=== PATIENT | male | born 1965 | race Caucasian/White ===

== ENCOUNTER 2020-01-31 21:39 | Emergency (ER) | payer BC ==
[2020-01-31 22:01] VITALS: BP 159/92; PULSE 119
[2020-02-01] MEDS ORDERED: Sulfamethoxazole/Trimethoprim 800-160 MG Tab PO STA (01:04)
--- NOTE | 2020-02-01 01:07 | EDM.PDOC ---
ED HPI GENERAL MEDICAL PROBLEM - General Chief Complaint: Genitourinary Problem Stated Complaint: FEVER CHILLD ABDOMINAL PAIN DIARRHEA Time Seen by Provider: 02/01/20 00:34 Source of Information: Reports: Patient, Significant Other (Girlfriend) History Limitations: Reports: No Limitations - History of Present Illness INITIAL COMMENTS - FREE TEXT/NARRATIVE: Mr. Mederos is a pleasant 54-year-old gentleman with a past medical history significant for rheumatoid arthritis, diabetes, morbid obesity, and diverticulitis, who now presents to the ED stating that he developed dysuria, u rinary urgency, and urinary frequency this morning. He states that he feels lower abdominal fullness and rectal urgency, as if constipated, however, he has not actually been constipated. He then developed a fever with a T-max of 101.6 degrees at 20:45. No prior similar symptoms. He did not take any etew-[id number] medications prior to coming to the ED. Here in the ED, the patient's initial BP is found to be elevated at 159/92, with a tachycardia of 119 bpm and slight tachypnea at 21 rpm. He is afebrile, saturating 91% on room air. The patient states that he had some malaise for 1 day about 2 ago, otherwise, the patient denies recent sore throat, ear pain, nasal or sinus congestion, cough, dyspnea, chest pain, palpitations, nausea, vomiting, constipation, diarrhea, abdominal pain, recent weight gain or weight loss, recent bloody bowel movements or black bowel movements, recent joint aches, headaches, or rashes. The patient states that he checks his blood sugar only about once a month, most recently about 2 weeks ago. The patient's PCP is Dr. Lisa Avina. His Management Expert is Dr. Baldomero Pichardo. His cardiology midlevel is [facility]. - Related Data Allergies Allergy/AdvReac Type Severity Reaction Status Date / Time amoxicillin [Amoxicillin] Allergy Mild Cannot Verified 02/03/20 10:03 Remember erythromycin base Allergy Mild Cannot Verified 02/03/20 10:03 [Erythromycin Base] Remember Home Meds: Home Meds Aspirin [Tim Chewable Aspirin] 81 mg PO DAILY 12/12/13 [History] Lisinopril 20 mg PO DAILY 12/12/13 [History] carvediloL [Coreg] 25 mg PO BID 12/12/13 [History] Allopurinol [Zyloprim] 300 mg PO BID 07/20/15 [History] metFORMIN [Glucophage XR] 500 mg PO BID 07/08/16 [History] Omeprazole 20 mg PO DAILY #30 cap.cr 07/26/16 [Rx] Fenofibrate 160 mg PO DAILY 06/21/19 [History] Furosemide [Lasix] 40 mg PO DAILY 06/21/19 [History] amLODIPine Besylate [Norvasc] 5 mg PO DAILY 06/21/19 [History] Past Medical History HEENT History: Reports: Impaired Vision (wears contacts) Cardiovascular History: Reports: Cardiomyopathy (viral, resolved), High Cholesterol, Hypertension Respiratory History: Reports: Sleep Apnea (nightly CPAP 13) Gastrointestinal History: Reports: Colon Polyp, Diverticulosis Musculoskeletal History: Reports: Fracture (left 2nd finger), Gout, RA, Other (See Below) (Unequel lower extremity length) Endocrine/Metabolic History: Reports: Diabetes, Type II, Obesity/BMI 30+ - Past Surgical History HEENT Surgical History: Reports: Myringotomy w Tube(s), Tonsillectomy Cardiovascular Surgical History: Reports: AICD GI Surgical History: Reports: Cholecystectomy (2017), Colonoscopy, Hernia, I nguinal (left) Musculoskeletal Surgical History: Reports: Knee Replacement (left), Shoulder Surgery (left), Other (See Below) (Left ankle fusion) Dermatological Surgical History: Reports: Other (See Below) (Lipoma excised off left shoulder) Social & Family History - Tobacco Use Smoking Status *Q: Current Every Day Smoker Years of Tobacco use: 46 Packs/Tins Daily: 0.8 Packs/Tins Daily Comment: Down from 2 ppd - Caffeine Use Caffeine Use: Reports: Coffee - Alcohol Use Alcohol Use History: Yes Days Per Week of Alcohol Use: 7 Number of Drinks Per Day: 2 Total Drinks Per Week: 14 Alcohol Use Frequency: Daily (occasionally to excess) - Recreational Drug Use Recreational Drug Use: Yes Drug Use in Last 12 Months: No Recreational Drug Type: Reports: Marijuana/Hashish (last smoked prior to 2009) - Living Situation & Occupation Living situation: Reports: , with Significant Other (Girlfriend) Occupation: Employed ([employer] shop) ED ROS GENERAL - Review of Systems Review Of Systems: Comprehensive ROS is negative, except as noted in HPI. ED EXAM, RENAL/ - Physical Exam Exam: See Below Exam Limited By: No Limitations General Appearance: Alert, WD/WN, No Apparent Distress (appears uncomfortable) Eye Exam: Bilateral Eye: EOMI, Normal Inspection Ears: Normal External Exam, Hearing Grossly Normal Nose: Normal Inspection Throat/Mouth: Normal Inspection, Normal Lips, Normal Voice, No Airway Compromise Head: Atraumatic, Normocephalic Neck: Normal Inspection, Full Range of Motion Respiratory/Chest: No Respiratory Distress, Lungs Clear, Normal Breath Sounds, No Accessory Muscle Use Cardiovascular: Normal Peripheral Pulses, No Gallop, No JVD, No Murmur, No Rub, Tachycardia (regular) GI/Abdominal: Normal Bowel Sounds, Soft, No Organomegaly, No Distention, No Abnormal Bruit, No Mass, Tender (Mild, suprapubic only. Essentially nontender elsewhere.) (Male) Exam: Other (The prostate is tender on rectal exam) Rectal (Males) Exam: Normal Rectal Tone Back Exam: Normal Inspection, Full Range of Motion. No: CVA Tenderness (L), CVA Tenderness (R) Extremities: Normal Inspection, Normal Range of Motion, Normal Capillary Refill Neurological: Alert, Oriented, Normal Cognition, No Motor/Sensory Deficits Psychiatric: Normal Affect Skin Exam: Warm, Dry, Intact, Normal Color, No Rash Course - Vital Signs Last Recorded V/S: Last Vital Signs Temp 37.8 C 01/31/20 21:55 Pulse 119 H 01/31/20 21:55 Resp 21 H 01/31/20 21:55 BP 159/92 H 01/31/20 21:55 Pulse Ox 91 L 01/31/20 21:55 - Orders/Labs/Meds Labs: Laboratory Tests 01/31/20 Range/Units 20:03 Urine Color Yellow (Yellow) Urine Appearance Clear (Clear) Urine pH 7.0 (5.0-8.0) Ur Specific Harrison 1.020 (1.005-1.030) Urine Protein 2+ H (Negative) Urine Glucose (UA) Negative (Negative) Urine Ketones Trace H (Negative) Urine Occult Blood Negative (Negative) Urine Nitrite Negative (Negative) Urine Bilirubin Negative (Negative) Urine Urobilinogen 1.0 (0.2-1.0) Ur Leukocyte Esterase Trace H (Negative) Urine RBC 0-5 (0-5) /hpf Urine WBC 0-5 (0-5) /hpf Ur Epithelial Cells 0-5 (0-5) /hpf Urine Bacteria Moderate H (FEW) /hpf Urine Mucus Not seen (FEW) /hpf Meds: Medications Discontinued Medications Generic Name Dose Route Start Last Admin Trade Name Gilberto PRN Reason Stop Dose Admin Tramadol HCl 100 mg 02/01/20 01:28 02/01/20 01:48 Ultram PO 02/01/20 01:29 100 mg ONETIME ONE Administration Trimethoprim/Sulfamethoxazole 1 tab 02/01/20 01:04 02/01/20 01:17 Septra Ds PO 02/01/20 01:05 1 tab ONETIME STA Administration - Re-Assessments/Exams Free Text/Narrative Re-Assessment/Exam: 02/01/20 01:02 As above, the patient has been experiencing dysuria, urinary urgency, and frequency since this morning, along with fever and chills this afternoon. On physical exam, he has mild suprapubic tenderness, and his prostate is tender. His urinalysis is grossly unremarkable. I suspect that he is suffering from acute bacterial prostatitis. I have ordered a bladder scan, and presuming he does not have a significant amount of urinary retention, I believe he can be discharged home with a course of oral antibiotics. I will start him on oral Bactrim DS. 02/01/20 01:23 Notified by Marilee TY that the patient's post-void bladder scan found only 4 mL of urine. 02/01/20 01:30 Test results discussed with the patient and his girlfriend. The patient will be given a 100 mg tablet of tramadol, after which I will discharge him home with a prescription for Bactrim DS sufficient to complete a 10-day course. I would like the patient to follow-up with his PCP on 02/04/2020, to check on his urine culture results. Departure - Departure Time of Disposition: 01:31 Disposition: Home, Self-Care 01 Condition: Good Clinical Impression: Acute bacterial prostatitis - Discharge Information *PRESCRIPTION DRUG MONITORING PROGRAM REVIEWED*: Not Applicable *COPY OF PRESCRIPTION DRUG MONITORING REPORT IN PATIENT ZUNILDA: Not Applicable Instructions: Prostatitis, [id number] Referrals: Lisa Avina MD [Primary Care Provider] - Mary Anne Pickard PA-C [Ordering Only Provider] - Baldomero Pichardo DO [Ordering Only Provider] - Forms: ED Department Discharge Additional Instructions: You were seen in the emergency room after developing painful urination with the need to urinate often, this morning, along with lower abdominal pressure and the sensation that you need to defecate, then developing a fever and chills this afternoon. Work-up in the ER included a urinalysis and a bladder scan. Based on your history, physical exam, and ER tests, you are suffering from acute bacterial prostatitis = an infection of your prostate gland. You have been started on the antibiotic Bactrim, and a prescription for Bactrim has been sent to the [facility], located just south and [place] [address] from [facility]. Take 1 tablet of Bactrim every 12 hours, starting this morning, 02/01/2020. Finish the entire prescription unless told otherwise by your doctor. We recommend that you follow-up with your PCP, Dr. Lisa Avina, this coming 02/04/2020, to have her check on your urine culture results and to see how you are doing. If any other problems, please do not hesitate to return to the ER. Sepsis Event Note (ED) - Evaluation Sepsis Screening Result: Possible Sepsis Risk
[2020-02-01] MEDS ORDERED: traMADol 50 MG Tab PO ONE (01:28)
== END 2020-02-01 01:49 | disposition home or self-care (01) ==
LOC: JD.ED 21:39
DX: N41.0 Acute prostatitis (principal); B96.89 Other specified bacterial agents as the cause of diseases classified elsewhere; E11.9 Type 2 diabetes mellitus without complications; E66.01 Morbid (severe) obesity due to excess calories; M06.9 Rheumatoid arthritis, unspecified; E78.00 Pure hypercholesterolemia, unspecified; I10 Essential (primary) hypertension; F17.210 Nicotine dependence, cigarettes, uncomplicated; E66.9 Obesity, unspecified; Z68.34 Body mass index [BMI] 34.0-34.9, adult; Z79.82 Long term (current) use of aspirin; Z79.84 Long term (current) use of oral hypoglycemic drugs; Z79.899 Other long term (current) drug therapy; Z88.1 Allergy status to other antibiotic agents
CPT/HCPCS: 51798; 81001; 81003; 87086; 87088; 87186; 99284; A9270; 99283

== ENCOUNTER 2020-02-02 07:30 | Inpatient (IN) | payer BC ==
--- NOTE | 2020-02-02 08:00 | EDM.PDOC ---
ED HPI GENERAL MEDICAL PROBLEM - General Chief Complaint: Genitourinary Problem Stated Complaint: STOMACH PAIN Time Seen by Provider: 02/02/20 07:40 - History of Present Illness INITIAL COMMENTS - FREE TEXT/NARRATIVE: 54-year-old male presents the emergency room with urinary frequency and discomfort. The patient was seen here 2 days ago diagnosed with prostatitis started on Bactrim. He has had 4 doses thus far. He is still having significant urinary frequency. As a result of this he does not want to drink because he does not want to have to get up to void. So now is getting dizzy and believes he is dehydrated. Patient has a history of multiple cardiac problems including congestive heart failure he is got a pacemaker defibrillator in place. Albeit the patient believes the defibrillator does not need to be there. The patient is somewhat insistent on getting IV fluids and get a urinary catheter put in so he does not have to get up to void so frequently. Patient is also complaining of a cough that started over the last day or so. The patient has not smoked in 2 days and says he is quitting. Patient denies any fevers or chills. Pelvic Pain Score (Numeric/FACES): 6 - Related Data Allergies Allergy/AdvReac Type Severity Reaction Status Date / Time amoxicillin [Amoxicillin] Allergy Severe Cannot Verified 02/02/20 17:20 Remember erythromycin base Allergy Severe Cannot Verified 02/02/20 17:20 [Erythromycin Base] Remember [id number] Reductase Allergy Severe Muscle Verified 02/02/20 17:20 Inhibitor Aches ibuprofen AdvReac Severe Stomach Verified 02/02/20 17:20 Upset Home Meds: Home Meds Aspirin [Tim Chewable Aspirin] 81 mg PO DAILY 12/12/13 [History] Lisinopril 20 mg PO DAILY 12/12/13 [History] carvediloL [Coreg] 25 mg PO BID 12/12/13 [History] Allopurinol [Zyloprim] 300 mg PO BID 07/20/15 [History] metFORMIN [Glucophage XR] 500 mg PO BID 07/08/16 [History] Omeprazole 20 mg PO DAILY #30 cap.cr 07/26/16 [Rx] Fenofibrate 160 mg PO DAILY 06/21/19 [History] Furosemide [Lasix] 40 mg PO DAILY 06/21/19 [History] amLODIPine Besylate [Norvasc] 10 mg PO DAILY 06/21/19 [History] Past Medical History HEENT History: Reports: Impaired Vision, Other (See Below) Other HEENT History: wears contacts, otorrhea Cardiovascular History: Reports: Cardiomyopathy, Heart Failure, High Cholesterol, Hypertension, Pacemaker, SOB on Exertion Other Cardiovascular History: AICD-pt states "has never gone off and feels did not need this". EKG 04-25 SR 80 old inf infarct prob left atrial enlargement. Echo 03-26 EF 50-55% Respiratory History: Reports: Sleep Apnea Gastrointestinal History: Reports: Colon Polyp, Diverticulosis, Other (See Below) Other Gastrointestinal History: elevated liver enzymes, hypoechoic masses Genitourinary History: Reports: Other (See Below) Other Genitourinary History: hematuria Musculoskeletal History: Reports: Fracture, Gout, Other (See Below) Other Musculoskeletal History: unequal leg legnth, plantar fascitis Endocrine/Metabolic History: Reports: Diabetes, Type II, Obesity/BMI 30+ Hematologic History: Reports: Other (See Below) Other Hematologic History: leukocytosis Oncologic (Cancer) History: Reports: None Other Dermatologic History: lipoma to L shoulder, lesion excision, hematoma evacuation - Past Surgical History HEENT Surgical History: Reports: Myringotomy w Tube(s), Tonsillectomy Cardiovascular Surgical History: Reports: AICD, Pacer GI Surgical History: Reports: Cholecystectomy, Colonoscopy, Hernia, Inguinal, Hernia Repair/Other Musculoskeletal Surgical History: Reports: Knee Replacement, Other (See Below) Social & Family History - Tobacco Use Smoking Status *Q: Former Smoker Used Tobacco, but Quit: Yes Month/Year Tobacco Last Used: 01/2020 - Caffeine Use Caffeine Use: Reports: Coffee ED ROS GENERAL - Review of Systems Review Of Systems: See Below Constitutional: Reports: Fatigue. Denies: Fever, Chills HEENT: Reports: No Symptoms Respiratory: Reports: Cough Cardiovascular: Reports: No Symptoms Endocrine: Reports: No Symptoms GI/Abdominal: Reports: Abdominal Pain : Reports: Frequency, Urgency. Denies: Hematuria Skin: Reports: No Symptoms Neurological: Reports: No Symptoms ED EXAM, GI/ABD - Physical Exam Exam: See Below Exam Limited By: Other (He is somewhat demanding) General Appearance: Alert, No Apparent Distress Head: Atraumatic, Normocephalic Neck: Normal Inspection, Supple, Non-Tender, Full Range of Motion. No: Lymphadenopathy (L), Lymphadenopathy (R) Respiratory/Chest: No Respiratory Distress, Lungs Clear, Normal Breath Sounds Cardiovascular: Regular Rate, Rhythm, No Edema, No Murmur GI/Abdominal Exam: Normal Bowel Sounds, Soft, Non-Tender. No: Guarding, Rigid, Rebound Back Exam: Normal Inspection, CVA Tenderness (L) (Mild), CVA Tenderness (R) (Mild) Extremities: Normal Inspection, No Pedal Edema Neurological: Alert, Oriented Course - Vital Signs Last Recorded V/S: Last Vital Signs Temp 37.2 C 02/02/20 16:00 Pulse 113 H 02/02/20 07:37 Resp 19 02/02/20 16:00 BP 126/76 02/02/20 16:00 Pulse Ox 97 02/02/20 16:00 - Orders/Labs/Meds Orders: Active Orders 24 hr Category Date Time Status Patient Status [ADT] Routine ADT 02/02/20 15:01 Active Ambulate [RC] ASDIRECTED Care 02/02/20 15:13 Active CIWAA Assessment [RC] Q4HR Care 02/02/20 15:13 Active Cardiac Monitoring [RC] CONTINUOUS Care 02/02/20 15:14 Active Intake and Output [RC] Q2HR Care 02/02/20 15:14 Active Notify Provider [RC] PRN Care 02/02/20 15:13 Active Oxygen Therapy [RC] .PRN Care 02/02/20 15:13 Active VTE/DVT Education [RC] BID Care 02/02/20 15:13 Active Vital Signs [RC] Q4HR Care 02/02/20 15:13 Active Abdomen Pelvis w Cont [CT] Stat Exams 02/02/20 12:22 Taken Chest 2V [CR] Stat Exams 02/02/20 08:03 Taken CULTURE BLOOD [BC] Stat Lab 02/02/20 10:50 Received CULTURE BLOOD [BC] Stat Lab 02/02/20 10:56 Received CULTURE URINE [RM] Stat Lab 02/02/20 08:15 Received DRUG SCREEN, URINE [URCHEM] Stat Lab 02/02/20 14:46 Ordered Lactated Ringers [Ringers, Lactated] 1,000 ml Med 02/02/20 08:15 Active IV ASDIRECTED Nicotine [Habitrol] Med 02/03/20 09:00 Active 21 mg TRDERM DAILY Sodium Chloride 0.9% [Normal Saline] 45 ml Med 02/02/20 12:45 Active IV ASDIRECTED Sodium Chloride 0.9% [Saline Flush] Med 02/02/20 12:36 Active 10 ml FLUSH ONETIME PRN Blood Culture x2 Reflex Set [OM.PC] Stat Oth 02/02/20 10:24 Ordered Resuscitation Status Routine Resus Stat 02/02/20 15:13 Ordered Medication Orders Hydrocodone Bitart/Acetaminophen ([place] 325-5 Mg) 1 tab PO Q4H PRN PRN Reason: Pain (moderate 4-6) Lactated Ringer's (Ringers, Lactated) 1,000 mls @ 125 mls/hr IV ASDIRECTED GERALD Last Admin: 02/02/20 17:13 Dose: 125 mls/hr Documented by: Infusion: 02/02/20 16:31 Dose: 125 mls/hr Documented by: Admin: 02/02/20 08:31 Dose: 125 mls/hr Documented by: QUOC Sodium Chloride (Normal Saline) 45 mls @ 40 mls/hr IV ASDIRECTED GERALD Last Admin: 02/02/20 12:52 Dose: 40 mls/hr Documented by: ZO Ketorolac Tromethamine (Toradol) 15 mg IVPUSH Q6H PRN PRN Reason: Pain (mild 1-3) Lorazepam (Ativan) 0 mg IV ASDIRECTED GERALD; Protocol Lorazepam (Ativan) 0 mg PO ASDIRECTED GERALD; Protocol Miscellaneous Information (Remove Patch) 21 ea TRDERM DAILY GERALD Morphine Sulfate (Morphine) 2 mg IVPUSH Q4H PRN PRN Reason: Pain (severe 7-10) Nicotine (Habitrol) 21 mg TRDERM DAILY GERALD Sodium Chloride (Saline Flush) 10 ml FLUSH ONETIME PRN PRN Reason: Keep Vein Open Last Admin: 02/02/20 12:51 Dose: 10 ml Documented by: ZO Labs: Laboratory Tests 02/02/20 02/02/20 02/02/20 Range/Units 08:15 08:20 08:20 WBC 20.31 H (4.23-9.07) K/mm3 RBC 3.87 L (4.63-6.08) M/mm3 Hgb 11.2 L D (13.7-17.5) gm/dl Hct 34.7 L (40.1-51.0) % MCV 89.7 D (79.0-92.2) fl MCH 28.9 (25.7-32.2) pg MCHC 32.3 (32.2-35.5) g/dl RDW Std Deviation 52.9 H (35.1-43.9) fL Plt Count 237 (163-337) K/mm3 MPV 9.8 (9.4-12.3) fl Neut % (Auto) 88.8 H (34.0-67.9) % Lymph % (Auto) 3.2 L (21.8-53.1) % [place] % (Auto) 7.1 (5.3-12.2) % Eos % (Auto) 0 L (0.8-7.0) Baso % (Auto) 0.2 (0.1-1.2) % Neut # (Auto) 18.02 H (1.78-5.38) K/mm3 Lymph # (Auto) 0.64 L (1.32-3.57) K/mm3 [place] # (Auto) 1.45 H (0.30-0.82) K/mm3 Eos # (Auto) 0.01 L (0.04-0.54) K/mm3 Baso # (Auto) 0.04 (0.01-0.08) K/mm3 Manual Slide Review Abnormal smear ESR (0-15) mm/hr Sodium 135 L (136-145) mEq/L Potassium 4.1 (3.5-5.1) mEq/L Chloride 98 (98-107) mEq/L Carbon Dioxide 23 (21-32) mEq/L Anion Gap 18.1 H (5-15) BUN 22 H (7-18) mg/dL Creatinine 1.6 H (0.7-1.3) mg/dL Est Cr Clr Drug Dosing 54.91 mL/min Estimated GFR (MDRD) 45 (>60) mL/min BUN/Creatinine Ratio 13.8 L (14-18) Glucose 170 H (74-106) mg/dL Lactic Acid (0.4-2.0) mmol/L Calcium 8.7 (8.5-10.1) mg/dL Phosphorus (2.6-4.7) mg/dL Magnesium (1.8-2.4) mg/dl Total Bilirubin 0.8 (0.2-1.0) mg/dL AST 26 (15-37) U/L ALT 33 (16-63) U/L Alkaline Phosphatase 57 (46-116) U/L Troponin I < 0.017 (0.00-0.056) ng/mL C-Reactive Protein (<1.0) mg/dL Total Protein 7.3 (6.4-8.2) g/dl Albumin 3.0 L (3.4-5.0) g/dl Globulin 4.3 gm/dL Albumin/Globulin Ratio 0.7 L (1-2) Urine Color [place] H (Yellow) Urine Appearance Slt cloudy H (Clear) Urine pH 5.5 (5.0-8.0) Ur Specific [place] > or = 1.030 (1.005-1.030) Urine Protein 3+ H (Negative) Urine Glucose (UA) Negative (Negative) Urine Ketones Trace H (Negative) Urine Occult Blood 1+ H (Negative) Urine Nitrite Negative (Negative) Urine Bilirubin 2+ H (Negative) Urine Urobilinogen 2.0 H (0.2-1.0) Ur Leukocyte Esterase Trace H (Negative) Urine RBC 5-10 H (0-5) /hpf Urine WBC 40-50 H (0-5) /hpf Ur Squamous Epith Cells 10-20 H (0-5) /hpf Urine Bacteria Many H (FEW) /hpf Urine Mucus Not seen (FEW) /hpf Ethyl Alcohol (0.00) gm% SARS-CoV-2 RNA (RT-PCR) (NEGATIVE) 02/02/20 02/02/20 02/02/20 Range/Units 08:20 14:15 14:59 WBC (4.23-9.07) K/mm3 RBC (4.63-6.08) M/mm3 Hgb (13.7-17.5) gm/dl Hct (40.1-51.0) % MCV (79.0-92.2) fl MCH (25.7-32.2) pg MCHC (32.2-35.5) g/dl RDW Std Deviation (35.1-43.9) fL Plt Count (163-337) K/mm3 MPV (9.4-12.3) fl Neut % (Auto) (34.0-67.9) % Lymph % (Auto) (21.8-53.1) % [place] % (Auto) (5.3-12.2) % Eos % (Auto) (0.8-7.0) Baso % (Auto) (0.1-1.2) % Neut # (Auto) (1.78-5.38) K/mm3 Lymph # (Auto) (1.32-3.57) K/mm3 [place] # (Auto) (0.30-0.82) K/mm3 Eos # (Auto) (0.04-0.54) K/mm3 Baso # (Auto) (0.01-0.08) K/mm3 Manual Slide Review ESR (0-15) mm/hr Sodium (136-145) mEq/L Potassium (3.5-5.1) mEq/L Chloride (98-107) mEq/L Carbon Dioxide (21-32) mEq/L Anion Gap (5-15) BUN (7-18) mg/dL Creatinine (0.7-1.3) mg/dL Est Cr Clr Drug Dosing mL/min Estimated GFR (MDRD) (>60) mL/min BUN/Creatinine Ratio (14-18) Glucose (74-106) mg/dL Lactic Acid 1.2 (0.4-2.0) mmol/L Calcium (8.5-10.1) mg/dL Phosphorus (2.6-4.7) mg/dL Magnesium (1.8-2.4) mg/dl Total Bilirubin (0.2-1.0) mg/dL AST (15-37) U/L ALT (16-63) U/L Alkaline Phosphatase (46-116) U/L Troponin I (0.00-0.056) ng/mL C-Reactive Protein 31.9 H* (<1.0) mg/dL Total Protein (6.4-8.2) g/dl Albumin (3.4-5.0) g/dl Globulin gm/dL Albumin/Globulin Ratio (1-2) Urine Color (Yellow) Urine Appearance (Clear) Urine pH (5.0-8.0) Ur Specific [place] (1.005-1.030) Urine Protein (Negative) Urine Glucose (UA) (Negative) Urine Ketones (Negative) Urine Occult Blood (Negative) Urine Nitrite (Negative) Urine Bilirubin (Negative) Urine Urobilinogen (0.2-1.0) Ur Leukocyte Esterase (Negative) Urine RBC (0-5) /hpf Urine WBC (0-5) /hpf Ur Squamous Epith Cells (0-5) /hpf Urine Bacteria (FEW) /hpf Urine Mucus (FEW) /hpf Ethyl Alcohol 0.00 (0.00) gm% SARS-CoV-2 RNA (RT-PCR) Negative (NEGATIVE) 02/02/20 02/02/20 02/02/20 Range/Units 14:59 14:59 14:59 WBC (4.23-9.07) K/mm3 RBC (4.63-6.08) M/mm3 Hgb (13.7-17.5) gm/dl Hct (40.1-51.0) % MCV (79.0-92.2) fl MCH (25.7-32.2) pg MCHC (32.2-35.5) g/dl RDW Std Deviation (35.1-43.9) fL Plt Count (163-337) K/mm3 MPV (9.4-12.3) fl Neut % (Auto) (34.0-67.9) % Lymph % (Auto) (21.8-53.1) % [place] % (Auto) (5.3-12.2) % Eos % (Auto) (0.8-7.0) Baso % (Auto) (0.1-1.2) % Neut # (Auto) (1.78-5.38) K/mm3 Lymph # (Auto) (1.32-3.57) K/mm3 [place] # (Auto) (0.30-0.82) K/mm3 Eos # (Auto) (0.04-0.54) K/mm3 Baso # (Auto) (0.01-0.08) K/mm3 Manual Slide Review ESR 99 H (0-15) mm/hr Sodium (136-145) mEq/L Potassium (3.5-5.1) mEq/L Chloride (98-107) mEq/L Carbon Dioxide (21-32) mEq/L Anion Gap (5-15) BUN (7-18) mg/dL Creatinine (0.7-1.3) mg/dL Est Cr Clr Drug Dosing mL/min Estimated GFR (MDRD) (>60) mL/min BUN/Creatinine Ratio (14-18) Glucose (74-106) mg/dL Lactic Acid 1.6 (0.4-2.0) mmol/L Calcium (8.5-10.1) mg/dL Phosphorus 2.7 (2.6-4.7) mg/dL Magnesium 1.3 L (1.8-2.4) mg/dl Total Bilirubin (0.2-1.0) mg/dL AST (15-37) U/L ALT (16-63) U/L Alkaline Phosphatase (46-116) U/L Troponin I (0.00-0.056) ng/mL C-Reactive Protein (<1.0) mg/dL Total Protein (6.4-8.2) g/dl Albumin (3.4-5.0) g/dl Globulin gm/dL Albumin/Globulin Ratio (1-2) Urine Color (Yellow) Urine Appearance (Clear) Urine pH (5.0-8.0) Ur Specific [place] (1.005-1.030) Urine Protein (Negative) Urine Glucose (UA) (Negative) Urine Ketones (Negative) Urine Occult Blood (Negative) Urine Nitrite (Negative) Urine Bilirubin (Negative) Urine Urobilinogen (0.2-1.0) Ur Leukocyte Esterase (Negative) Urine RBC (0-5) /hpf Urine WBC (0-5) /hpf Ur Squamous Epith Cells (0-5) /hpf Urine Bacteria (FEW) /hpf Urine Mucus (FEW) /hpf Ethyl Alcohol (0.00) gm% SARS-CoV-2 RNA (RT-PCR) (NEGATIVE) Meds: Medications Generic Name Dose Route Start Last Admin Trade Name Freq PRN Reason Stop Dose Admin Hydrocodone Bitart/Acetaminophen 1 tab 02/02/20 16:51 [place] 325-5 Mg PO Q4H PRN Pain (moderate 4-6) Lactated Ringer's 1,000 mls @ 125 mls/hr 02/02/20 08:15 02/02/20 17:13 Ringers, Lactated IV 125 mls/hr ASDIRECTED GERALD Administration Sodium Chloride 45 mls @ 40 mls/hr 02/02/20 12:45 02/02/20 12:52 Normal Saline IV 40 mls/hr ASDIRECTED GERALD Administration Ketorolac Tromethamine 15 mg 02/02/20 16:51 Toradol IVPUSH Q6H PRN Pain (mild 1-3) Lorazepam 0 mg 02/02/20 15:30 Ativan IV ASDIRECTED [facility] Protocol Lorazepam 0 mg 02/02/20 15:30 Ativan PO ASDIRECTED [facility] Protocol Miscellaneous Information 21 ea 02/03/20 09:00 Remove Patch TRDERM DAILY GERALD Morphine Sulfate 2 mg 02/02/20 16:51 Morphine IVPUSH Q4H PRN Pain (severe 7-10) Nicotine 21 mg 02/03/20 09:00 Habitrol TRDERM DAILY GERALD Sodium Chloride 10 ml 02/02/20 12:36 02/02/20 12:51 Saline Flush FLUSH 10 ml ONETIME PRN Administration Keep Vein Open Discontinued Medications Generic Name Dose Route Start Last Admin Trade Name Freq PRN Reason Stop Dose Admin Ceftriaxone Sodium 2 gm/ 100 mls @ 200 mls/hr 02/02/20 11:30 02/02/20 12:02 Sodium Chloride IV 02/02/20 11:59 200 mls/hr ONETIME ONE Administration Piperacillin Sod/Tazobactam 100 mls @ 200 mls/hr 02/02/20 14:48 02/02/20 15:10 Sod 4.5 gm/ Sodium Chloride IV 02/02/20 15:17 200 mls/hr ONETIME ONE Administration Iopamidol 100 ml 02/02/20 12:31 02/02/20 12:52 Isovue-300 (61%) IVPUSH 02/02/20 12:32 100 ml ONETIME ONE Administration Iopamidol 25 ml 02/02/20 12:31 02/02/20 12:52 Isovue-300 (61%) IVPUSH 02/02/20 12:32 25 ml ONETIME ONE Administration Lidocaine HCl 5 ml 02/02/20 15:39 02/02/20 16:36 Xylocaine 2% Jelly TOP 02/02/20 15:40 Not Given ONETIME ONE Lidocaine HCl Confirm 02/02/20 15:43 02/02/20 16:36 Xylocaine 2% Jelly Administered 02/02/20 15:44 Not Given Dose 10 ml .ROUTE .STK-MED ONE Morphine Sulfate 4 mg 02/02/20 16:51 02/02/20 17:12 Morphine IVPUSH 02/02/20 16:52 4 mg ONETIME ONE Administration - Re-Assessments/Exams Free Text/Narrative Re-Assessment/Exam: 02/02/20 11:28 Has an elevated white count is not getting better on oral antibiotics is developing worsening renal function. He probably to be started on IV antibiotics and receive IV fluids. Dr. Hung will come evaluate the patien t. Patient's chest x-ray is unremarkable pacemaker defibrillator in place. Patient will be given 2 g of Rocephin. He has an allergy to amoxicillin however with discussion with this and the patient it caused stomach cramps for him so not a true allergy. 02/02/20 12:20 Case was discussed with Dr. Hung who reviewed the situation in detail and would like us to get a abdominal pelvic CT with IV only contrast to be sure this gentleman does not have abscess along the genitourinary tract or kidney stone. 02/02/20 14:35 Dr. Hung is here at this time to review the patient and the CT results. Departure - Departure Time of Disposition: 15:40 Disposition: Admitted As Inpatient 64 Clinical Impression: Prostatitis, Dehydration, Pyelonephritis - Discharge Information Sepsis Event Note (ED) - Evaluation Sepsis Screening Result: No Definite Risk - My Orders Last 24 Hours: My Active Orders 02/02/20 08:03 Chest 2V [CR] Stat 02/02/20 08:15 CULTURE URINE [RM] Stat Lactated Ringers [Ringers, Lactated] 1,000 ml IV ASDIRECTED 02/02/20 10:24 Blood Culture x2 Reflex Set [OM.PC] Stat 02/02/20 10:50 CULTURE BLOOD [BC] Stat 02/02/20 10:56 CULTURE BLOOD [BC] Stat 02/02/20 12:22 Abdomen Pelvis w Cont [CT] Stat 02/02/20 12:36 Sodium Chloride 0.9% [Saline Flush] 10 ml FLUSH ONETIME PRN 02/02/20 12:45 Sodium Chloride 0.9% [Normal Saline] 45 ml IV ASDIRECTED 02/02/20 14:46 DRUG SCREEN, URINE [URCHEM] Stat 02/02/20 15:01 Patient Status [ADT] Routine - Assessment/Plan Last 24 Hours: My Active Orders 02/02/20 08:03 Chest 2V [CR] Stat 02/02/20 08:15 CULTURE URINE [RM] Stat Lactated Ringers [Ringers, Lactated] 1,000 ml IV ASDIRECTED 02/02/20 10:24 Blood Culture x2 Reflex Set [OM.PC] Stat 02/02/20 10:50 CULTURE BLOOD [BC] Stat 02/02/20 10:56 CULTURE BLOOD [BC] Stat 02/02/20 12:22 Abdomen Pelvis w Cont [CT] Stat 02/02/20 12:36 Sodium Chloride 0.9% [Saline Flush] 10 ml FLUSH ONETIME PRN 02/02/20 12:45 Sodium Chloride 0.9% [Normal Saline] 45 ml IV ASDIRECTED 02/02/20 14:46 DRUG SCREEN, URINE [URCHEM] Stat 02/02/20 15:01 Patient Status [ADT] Routine
[2020-02-02] MEDS: Lactated Ringers 1,000 ML IV SCH ×3 (08:31→22:33)
[2020-02-02] MEDS ORDERED: cefTRIAXone 2 GM in Sodium Chloride 0.9% 100 ML IV ONE (11:30)
[2020-02-02] MEDS ORDERED: Iopamidol 612 MG/ML 100 ML Bottle IVPUSH ONE (12:31)
[2020-02-02] MEDS ORDERED: Iopamidol 612 MG/ML 50 ML SDV IVPUSH ONE (12:31)
[2020-02-02] MEDS ORDERED: Sodium Chloride 0.9% 10 ML Syringe FLUSH PRN (12:36)
[2020-02-02] MEDS ORDERED: Sodium Chloride 0.9% 45 ML IV SCH (12:45)
[2020-02-02] MEDS ORDERED: Piperacillin/Tazobactam 4.5 GM in Sodium Chloride 0.9% 100 ML IV ONE (14:48)
--- NOTE | 2020-02-02 15:13 | PCM.HP.2 ---
H&P History of Present Illness - General Date of Service: 02/02/20 Admit Problem/Dx: Admission Diagnosis/Problem Admission Diagnosis/Problem Prostatitis - History of Present Illness Initial Comments - Free Text/Narative: Started having increased urinary frequency as well as dysuria and abdominal pain Pain got worse 2 days ago associated with a fever of 104.2 for which he came to the ED for evaluation - Diagnosed with UTI and discharged on Bactrim Pain only continued to get worse for the past 2 days for which he decided to come back in for further evaluation. Describes pain as 10/10, described as "colicky", located mainly on right flank initially but radiated to lower artem-abdomen. Associated to fever, chills, decreased oral intake, dark and foul smelling urine as well as difficulty to void No changes with hydrocodone or tramadol Denies nausea, vomiting, diarrhea or constipation Pelvic Pain Score (Numeric/FACES): 6 - Related Data Allergies/Adverse Reactions: Allergies Allergy/AdvReac Type Severity Reaction Status Date / Time amoxicillin [Amoxicillin] Allergy Mild Cannot Verified 02/03/20 10:03 Remember erythromycin base Allergy Mild Cannot Verified 02/03/20 10:03 [Erythromycin Base] Remember Home Medications: Home Meds Aspirin [Tim Chewable Aspirin] 81 mg PO DAILY 12/12/13 [History] Lisinopril 20 mg PO DAILY 12/12/13 [History] carvediloL [Coreg] 25 mg PO BID 12/12/13 [History] Allopurinol [Zyloprim] 300 mg PO BID 07/20/15 [History] metFORMIN [Glucophage XR] 500 mg PO BID 07/08/16 [History] Omeprazole 20 mg PO DAILY #30 cap.cr 07/26/16 [Rx] Fenofibrate 160 mg PO DAILY 06/21/19 [History] Furosemide [Lasix] 40 mg PO DAILY 06/21/19 [History] amLODIPine Besylate [Norvasc] 5 mg PO DAILY 06/21/19 [History] Past Medical History HEENT History: Reports: Impaired Vision, Other (See Below) Other HEENT History: wears contacts, otorrhea Cardiovascular History: Reports: Cardiomyopathy, Heart Failure, High Cholesterol, Hypertension, Pacemaker, SOB on Exertion Other Cardiovascular History: AICD-pt states "has never gone off and feels did not need this". EKG 9-18 SR 78 old inf infarct prob left atrial enlargement. Echo 8-19 EF 50-55% Respiratory History: Reports: Sleep Apnea Gastrointestinal History: Reports: Colon Polyp, Diverticulosis, Other (See Below) Other Gastrointestinal History: elevated liver enzymes, hypoechoic masses Genitourinary History: Reports: Other (See Below) Other Genitourinary History: hematuria Musculoskeletal History: Reports: Fracture, Gout, Other (See Below) Other Musculoskeletal History: unequal leg legnth, plantar fascitis Endocrine/Metabolic History: Reports: Diabetes, Type II, Obesity/BMI 30+ Hematologic History: Reports: Other (See Below) Other Hematologic History: leukocytosis Oncologic (Cancer) History: Reports: None Other Dermatologic History: lipoma to L shoulder, lesion excision, hematoma evacuation - Past Surgical History HEENT Surgical History: Reports: Myringotomy w Tube(s), Tonsillectomy Cardiovascular Surgical History: Reports: AICD, Pacer GI Surgical History: Reports: Cholecystectomy, Colonoscopy, Hernia, Inguinal, Hernia Repair/Other Musculoskeletal Surgical History: Reports: Knee Replacement, Other (See Below) Social & Family History - Tobacco Use Smoking Status *Q: Former Smoker Used Tobacco, but Quit: Yes Month/Year Tobacco Last Used: 01/2020 - Caffeine Use Caffeine Use: Reports: Coffee H&P Review of Systems - Review of Systems: Review Of Systems: See Below General: Reports: Fever, Chills, Malaise, Fatigue, Diaphoresis, Decreased Appetite. Denies: Weakness, Night Sweats, Weight Loss, Weight Gain HEENT: Denies: Rhinitis, Post Nasal Drip, Sinus Congestion, Sore Throat, Vertigo, Visual Changes Pulmonary: Denies: Shortness of Breath, Wheezing, Pleuritic Chest Pain, Cough, Sputum Cardiovascular: Denies: Chest Pain, Palpitations, Dyspnea on Exertion, Orthopnea, PND, Edema, Lightheadedness, Syncope Gastrointestinal: Reports: Abdominal Pain, Anorexia, Decreased Appetite. Denies: Black Stool, Bloody Stool, Constipation, Diarrhea, Difficulty Swallowing, Distension, Flatus, Hematemesis, Hematochezia, Melena, Mucous in Stool, Nausea Genitourinary: Reports: Dysuria, Frequency, Burning, Pain, Urgency, Incontinence, Retention, Flank Pain. Denies: Hematuria, Discharge Musculoskeletal: Denies: Joint Pain, Joint Swelling, Muscle Pain, Muscle Stiffness Skin: Denies: Cyanosis, Jaundice, Mottled, Pallor, Diaphoresis Psychiatric: Denies: Confusion, Depression, Mood Lability, Anxiety Neurological: Denies: Dizziness, Headache, Numbness, Paresthesia Exam - Exam Exam: See Below - Vital Signs Vital Signs: Last Vital Signs Temp 98.1 F 02/02/20 07:37 Pulse 113 H 02/02/20 07:37 Resp 26 H 02/02/20 07:37 BP 108/64 02/02/20 07:37 Pulse Ox 94 L 02/02/20 07:37 Weight: 108.862 kg - Exam Quality Assessment: Other (CONFOUNDED BY BODY HABITUS) General: Alert, Oriented, Severe Distress HEENT: Conjunctiva Clear, EACs Clear, EOMI, Hearing Intact, Mucosa Moist & [place], Nares Patent Neck: Supple Lungs: Decreased Breath Sounds. No: Crackles, Rales, Rhonchi, Rub, Stridor, Wheezing Cardiovascular: Regular Rate, Regular Rhythm, Normal S1, Normal S2. No: Systolic Murmur, Diastolic Murmur, Rubs, Gallop/S3, Gallop/S4 GI/Abdominal Exam: Distended, Rigid, Tender Back Exam: CVA Tenderness (L), CVA Tenderness (R) Extremities: Slow Capillary Refill, Other (left ankle is permanently bent outwards) Peripheral Pulses: 2+: Radial (L), Radial (R) Skin: Warm, Moist. No: Rash - Patient Data Result Diagrams: 02/05/20 08:00 02/05/20 13:30 Sepsis Event Note - Evaluation Sepsis Screening Result: No Definite Risk - Problem List (1) Acute bacterial prostatitis SNOMED Code(s): 02626955, 471301483514664 ICD Code: N41.0 - ACUTE PROSTATITIS Status: Acute Current Visit: No (2) Pyelonephritis SNOMED Code(s): 89467711 ICD Code: N12 - TUBULO-INTERSTITIAL NEPHRITIS, NOT SPCF ACUTE OR CHRONIC Status: Acute Current Visit: Yes (3) Rheumatoid arthritis SNOMED Code(s): 71674133 ICD Code: M06.9 - RHEUMATOID ARTHRITIS, UNSPECIFIED Status: Acute Current Visit: Yes (4) Diabetes mellitus SNOMED Code(s): 23679996 ICD Code: E11.9 - TYPE 2 DIABETES MELLITUS WITHOUT COMPLICATIONS Status: A cute Current Visit: Yes (5) Chronic alcohol abuse SNOMED Code(s): 434439889 ICD Code: F10.10 - ALCOHOL ABUSE, UNCOMPLICATED Status: Acute Current Visit: Yes (6) Current smoker SNOMED Code(s): 76023293 ICD Code: F17.200 - NICOTINE DEPENDENCE, UNSPECIFIED, UNCOMPLICATED Status: Acute Current Visit: Yes (7) CHF, Congestive heart failure SNOMED Code(s): 06955523 ICD Code: I50.9 - HEART FAILURE, UNSPECIFIED Status: Acute Current Visit: No (8) Leukocytosis SNOMED Code(s): 853048672, 938532033 ICD Code: D72.829 - ELEVATED WHITE BLOOD CELL COUNT, UNSPECIFIED Status: Acute Current Visit: Yes (9) Hyponatremia SNOMED Code(s): 08980832 ICD Code: E87.1 - HYPO-OSMOLALITY AND HYPONATREMIA Status: Acute Current Visit: Yes (10) Normocytic normochromic anemia SNOMED Code(s): 50896383 ICD Code: D64.9 - ANEMIA, UNSPECIFIED Status: Acute Current Visit: Yes (11) Acute kidney injury SNOMED Code(s): 21438126, 65902812 ICD Code: N17.9 - ACUTE KIDNEY FAILURE, UNSPECIFIED Status: Acute Current Visit: Yes (12) Acute urinary retention SNOMED Code(s): 481879126 ICD Code: R33.8 - OTHER RETENTION OF URINE Status: Acute Current Visit: Yes (13) Dyslipidemia SNOMED Code(s): 333494356 ICD Code: E78.5 - HYPERLIPIDEMIA, UNSPECIFIED Status: Acute Current Visit: Yes (14) AICD (automatic cardioverter/defibrillator) present SNOMED Code(s): 160551167, 354503245 ICD Code: Z95.810 - PRESENCE OF AUTOMATIC (IMPLANTABLE) CARDIAC DEFIBRILLATOR Status: Acute Current Visit: Yes (15) Viral cardiomyopathy SNOMED Code(s): 347955847448637 ICD Code: B33.24 - VIRAL CARDIOMYOPATHY Status: Acute Current Visit: Yes (16) Obstructive sleep apnea SNOMED Code(s): 28282980 ICD Code: G47.33 - OBSTRUCTIVE SLEEP APNEA (ADULT) (PEDIATRIC) Status: Acut e Current Visit: Yes (17) Hypertension SNOMED Code(s): 37453372 ICD Code: I10 - ESSENTIAL (PRIMARY) HYPERTENSION Status: Acute Current Visit: Yes Problem List Initiated/Reviewed/Updated: Yes Assessment/Plan Comment:: ASSESSMENT Started having increased urinary frequency as well as dysuria and abdominal pain Pain got worse 2 days ago for which he came to the ED for evaluation - Diagnosed with UTI and discharged on Bactrim Pain only continued to get worse for the past 2 days for which he decided to come back in and be evaluated Once in the ED he was found to be tachycardic with 20.31 WBC, lactic acid 1.2, UA was positive Urine culture from 01/30 + for gram negative rods Drinks at least 3 large whiskies a day for "a long time"-->Last drink was yesterday States the AICD has never "gone off" Discussed insertion of Brown catheter with urologist who recommended placing with lidocaine gel CT abdomen performed to r/o abscess --> ruled out Pyelonephritis Acute bacterial prostatitis Acute kidney injury Hyponatremia Acute urinary retention - Start Zosyn - Start NS - Insert Brown catheter - Morphine for pain control Chronic alcohol abuse - CIWAA protocol - Start Thiamine and folic Acid Viral cardiomyopathy with heart failure s/p AICD placement - Request prior echocardiogram Diabetes mellitus, unknown HbA1c - Scheduled accuchecks - Hypoglycemia protocol - HbA1c Rheumatoid arthritis On chronic immunosuppression medication (sulfazalazine) - Continue home medications once available Current smoker Smokes 3/4 of a pack per day Last one was yesterday PLAN - Nicotine patch - Tobacco cessation education Normocytic normochromic anemia - Work up ordered Dyslipidemia - Restart home meds once available PROPHYLAXIS DVT- Lovenox GI-not indicated CODE STATUS: FULL CODE DISPOSITION: Patient will be admitted to ICU for close monitorization and IV antibiotics. - Mortality Measure Prognosis:: Good
[2020-02-02] MEDS ORDERED: LORazepam 1 MG Tab PO SCH (15:30)
[2020-02-02] MEDS ORDERED: Lidocaine 2% Jelly 5 ML Tube TOP ONE (15:39)
[2020-02-02] MEDS ORDERED: Lidocaine 2% Jelly 10 ML Urojet ONE (15:43)
[2020-02-02] MEDS ORDERED: Morphine 4 MG/ML Syringe IVPUSH ONE (16:51)
[2020-02-02] MEDS ORDERED: Ketorolac 15 MG/ML SDV IVPUSH PRN (16:51)
[2020-02-02] MEDS: Morphine 2 MG/ML SYRINGE IVPUSH PRN (20:14)
[2020-02-02] MEDS: Levalbuterol HCl 1.25 MG/0.5 ML Neb NEB PRN (20:49)
[2020-02-02] MEDS: Enoxaparin 40 MG/0.4 ML Syringe SUBCUT SCH (22:24)
[2020-02-02] MEDS: Acetaminophen/HYDROcodone 325-5 MG Tab PO PRN (22:29)
[2020-02-02] MEDS ORDERED: Sodium Chloride 0.9% 1,000 ML ONE (23:42)
[2020-02-02] MEDS: Sodium Chloride 0.9% 1,000 ML IV SCH (23:56)
[2020-02-02] MEDS: Piperacillin/Tazobactam 4.5 GM in Sodium Chloride 0.9% 100 ML IV SCH (23:56)
[2020-02-03] MEDS ORDERED: Magnesium Sulfate/Water 4 GM in Premix Bag 1 BAG IV ONE ×2 (01:00→04:00)
[2020-02-03] MEDS: Morphine 2 MG/ML SYRINGE IVPUSH PRN ×5 (01:01→23:49)
[2020-02-03] MEDS: Sodium Chloride 0.9% 1,000 ML IV SCH ×3 (06:25→19:22)
[2020-02-03] MEDS: Piperacillin/Tazobactam 4.5 GM in Sodium Chloride 0.9% 100 ML IV SCH (06:30)
[2020-02-03] MEDS: Nicotine 21 MG/24 Hr Patch TRDERM SCH (08:23)
[2020-02-03] MEDS: Enoxaparin 40 MG/0.4 ML Syringe SUBCUT SCH ×2 (08:53→20:08)
[2020-02-03] MEDS ORDERED: Sodium Chloride 0.9% 1,000 ML IV SCH (09:00)
--- NOTE | 2020-02-03 09:14 | PCM.PN ---
- General Info Date of Service: 02/03/20 Subjective Update: Tolerating diet Pain controlled Slept OK - Patient Data Vitals - Most Recent: Last Vital Signs Temp 98.7 F 02/03/20 08:00 Pulse 89 02/03/20 04:00 Resp 18 02/03/20 08:00 BP 100/68 02/03/20 08:00 Pulse Ox 93 L 02/03/20 08:00 Weight - Most Recent: 127.323 kg - Exam General: Alert, Oriented, Cooperative, No Acute Distress, Other (CONFOUNDED BY BODY HABITUS) HEENT: Pupils Equal, Pupils Reactive, EOMI, Mucous Membr. Moist/[place] Neck: Supple Lungs: No: Decreased Breath Sounds, Crackles, Rales, Rhonchi, Rub, Stridor, Wheezing Cardiovascular: Regular Rate, Regular Rhythm. No: Murmurs, Gallops, Rubs GI/Abdominal Exam: Distended, Rigid. No: Guarding, Rebound, Tender Back Exam: No: CVA Tenderness (L), CVA Tenderness (R) Extremities: Non-Tender, No Pedal Edema, Normal Capillary Refill Peripheral Pulses: 2+: Radial (L), Radial (R) Skin: Warm, Dry Neurological: No New Focal Deficit Psy/Mental Status: Alert Sepsis Event Note - Evaluation Sepsis Screening Result: Sepsis Risk - Problem List & Annotations (1) Pyelonephritis SNOMED Code(s): 33016179 Code(s): N12 - TUBULO-INTERSTITIAL NEPHRITIS, NOT SPCF ACUTE OR CHRONIC Status: Acute Current Visit: Yes (2) Rheumatoid arthritis SNOMED Code(s): 56953707 Code(s): M06.9 - RHEUMATOID ARTHRITIS, UNSPECIFIED Status: Acute Current Visit: Yes (3) Diabetes mellitus SNOMED Code(s): 97781014 Code(s): E11.9 - TYPE 2 DIABETES MELLITUS WITHOUT COMPLICATIONS Status: Acute Current Visit: Yes (4) Chronic alcohol abuse SNOMED Code(s): 586621570 Code(s): F10.10 - ALCOHOL ABUSE, UNCOMPLICATED Status: Acute Current Visit: Yes (5) Current smoker SNOMED Code(s): 85130251 Code(s): F17.200 - NICOTINE DEPENDENCE, UNSPECIFIED, UNCOMPLICATED Status: Acute Current Visit: Yes (6) Acute bacterial prostatitis SNOMED Code(s): 74203794, 441682699936353 Code(s): N41.0 - ACUTE PROSTATITIS Status: Acute Current Visit: No (7) CHF, Congestive heart failure SNOMED Code(s): 78927075 Code(s): I50.9 - HEART FAILURE, UNSPECIFIED Status: Acute Current Visit: No (8) Leukocytosis SNOMED Code(s): 758695718, 315613987 Code(s): D72.829 - ELEVATED WHITE BLOOD CELL COUNT, UNSPECIFIED Status: Acute Current Visit: Yes (9) Hyponatremia SNOMED Code(s): 83779974 Code(s): E87.1 - HYPO-OSMOLALITY AND HYPONATREMIA Status: Acute Current Visit: Yes (10) Normocytic normochromic anemia SNOMED Code(s): 40273499 Code(s): D64.9 - ANEMIA, UNSPECIFIED Status: Acute Current Visit: Yes (11) Acute kidney injury SNOMED Code(s): 50643749, 66106369 Code(s): N17.9 - ACUTE KIDNEY FAILURE, UNSPECIFIED Status: Acute Current Visit: Yes (12) Acute urinary retention SNOMED Code(s): 470819091 Code(s): R33.8 - OTHER RETENTION OF URINE Status: Acute Current Visit: Yes (13) Dyslipidemia SNOMED Code(s): 877669871 Code(s): E78.5 - HYPERLIPIDEMIA, UNSPECIFIED Status: Acute Current Visit: Yes (14) AICD (automatic cardioverter/defibrillator) present SNOMED Code(s): 965726791, 777930729 Code(s): Z95.810 - PRESENCE OF AUTOMATIC (IMPLANTABLE) CARDIAC DEFIBRILLATOR Status: Acute Current Visit: Yes (15) Viral cardiomyopathy SNOMED Code(s): 265171383408956 Code(s): B33.24 - VIRAL CARDIOMYOPATHY Status: Acute Current Visit: Yes - Problem List Review Problem List Initiated/Reviewed/Updated: Yes - Assessment Assessment:: 02/02/2020 Started having increased urinary frequency as well as dysuria and abdominal pain Pain got worse 2 days ago for which he came to the ED for evaluation - Diagnosed with UTI and discharged on Bactrim Pain only continued to get worse for the past 2 days for which he decided to come back in and be evaluated Once in the ED he was found to be tachycardic with 20.31 WBC, lactic acid 1.2, UA was positive Urine culture from 01/30 + for gram negative rods Drinks at least 3 large whiskies a day for "a long time"-->Last drink was yesterday States the AICD has never "gone off" Smokes 3/4 of a pack per day Discussed insertion of Brown catheter with urologist who recommended placing with lidocaine gel--> inserted without difficulty CT abdomen performed to r/o abscess --> ruled out Admitted to ICU Started on Zosyn Pain controlled CIWAA negative Tolerating diet 02/03/2020 WBC improved form 20.31 to 10.19 Hb down from 11.2 to 8.9, likely hemodilution Na worsened from 135 to 132 GFR worsened from 45 to 37, baseline 60 Magnesium normal, up from 1.3 to 2.3 UO 1,450 Balance +1305 Continues to have intermittent tachycardia, trend 110-115 Tmax 99.8 HbA1c 6.1, unreliable due to anemia - Plan Plan:: Pyelonephritis 2/2 Gram Negative Rods Acute bacterial prostatitis Acute kidney injury, worsened Hyponatremia, worsened Acute urinary retention s/p Brown catheter placement - Continue Zosyn - Increase NS rate - Brown care by nursing - Morphine and [place] 5 for pain control - F/U culture results Chronic alcohol abuse - CIWAA protocol - Continue Thiamine and folic Acid Viral cardiomyopathy with heart failure s/p AICD placement - Request prior echocardiogram Diabetes mellitus, HbA1c- 6.1 in the setting of anemia - Scheduled Accuchecks - Hypoglycemia protocol Hypertension - Hold home medications Rheumatoid arthritis On chronic immunosuppression medication (sulfasalazine) - Continue home medications Current smoker - Nicotine patch - Tobacco cessation education Normocytic normochromic anemia - Work up ordered Dyslipidemia - Restart home meds once available PROPHYLAXIS DVT- Lovenox GI-not indicated CODE STATUS: FULL CODE DISPOSITION: Patient will remain admitted for IV antibiotics and pending culture finalization, currently stable.
[2020-02-03] MEDS: Acetaminophen/HYDROcodone 325-5 MG Tab PO PRN ×2 (14:11→23:51)
[2020-02-03] MEDS: LORazepam 2 MG/ML SDV IV SCH ×3 (19:22→23:50)
[2020-02-03] MEDS: cefTRIAXone 2 GM in Sodium Chloride 0.9% 100 ML IV SCH (20:08)
[2020-02-03] MEDS: Lisinopril 20 MG Tab PO SCH (22:20)
[2020-02-03] MEDS ORDERED: Carvedilol 12.5 MG Tab PO SCH (22:30)
[2020-02-04] MEDS: Sodium Chloride 0.9% 1,000 ML IV SCH ×3 (00:57→20:51)
[2020-02-04] MEDS: LORazepam 2 MG/ML SDV IV SCH ×3 (03:47→11:39)
[2020-02-04] MEDS: Morphine 2 MG/ML SYRINGE IVPUSH PRN (05:56)
--- NOTE | 2020-02-04 09:53 | CR ---
Chest: 2 views of the chest were obtained. Comparison: Prior chest x-ray of 03/03/19. Granulomatous change is felt to be present within the lateral left costophrenic angle which is stable. Lungs otherwise are clear. AICD is present. Bony structures are unremarkable for the patient's age. Impression: 1. Findings as noted above. 2. Nothing acute is appreciated on 2 view chest x-ray. Diagnostic code #2 This report was dictated in MDT
[2020-02-04] MEDS: Enoxaparin 40 MG/0.4 ML Syringe SUBCUT SCH ×2 (09:55→20:09)
--- NOTE | 2020-02-04 09:55 | CT ---
CT abdomen and pelvis Technique: Multiple axial sections were obtained from above the dome of the diaphragm inferiorly through the pubic symphysis. Intravenous contrast was utilized. No oral contrast has been given. Delayed images were also obtained through the bladder. Comparison: No prior abdominal imaging is available. Visualized lung bases show nothing acute. Liver contains fatty infiltration without focal abnormality being appreciated. Surgical clips are seen from prior cholecystectomy. Spleen appears within normal limits. Right adrenal gland shows a small nodule measuring about 1.5 cm. Left adrenal gland appears slightly nodular. Findings most likely related to small adrenal adenomas. Pancreas is within normal limits. Kidneys show symmetric contrast enhancement without hydronephrosis or mass. Slightly prominent retroperitoneal lymph nodes are noted. Largest lymph node measures about 1.2 cm. Aorta shows no aneurysm. No mesenteric abnormalities are seen. Inflammatory change is seen within the pelvis. Prostate gland is enlarged. Bladder wall is also thickened. No free fluid is seen. No bowel dilatation is identified. Minimal fat-containing inguinal hernias are noted bilaterally. Delayed images show no contrast within the distal ureters or bladder raising the possibility of dehydration. Bone window settings shows mild scattered degenerative change within the spine. Impression: 1. Inflammatory change within the pelvis. This may relate to prostatitis or cystitis. Prostate gland is enlarged and bladder wall is thickened. 2. Slightly prominent lymph nodes within the retroperitoneum. Consider repeat CT abdomen and pelvis exam in 6 months to hopefully show resolution or stability. This follow-up exam would occur in July,. 3. Other findings as noted above believed to be incidental. No other acute finding is appreciated. Diagnostic code #3 This report was dictated in MDT I agree with preliminary report from [facility], finalized on 02/02/20, 2:19 PM Central Daylight Time
[2020-02-04] MEDS: amLODIPine 5 MG Tab PO SCH ×2 (09:56→11:07)
[2020-02-04] MEDS: Nicotine 21 MG/24 Hr Patch TRDERM SCH (09:56)
[2020-02-04] MEDS: Allopurinol 300 MG Tab PO SCH ×3 (09:59→20:55)
[2020-02-04] MEDS: Furosemide 40 MG Tab PO SCH ×2 (09:59→11:09)
[2020-02-04] MEDS: Aspirin 81 MG Tab.EC PO SCH ×2 (09:59→11:09)
[2020-02-04] MEDS ORDERED: LORazepam 2 MG/ML SDV IV SCH (10:00)
[2020-02-04] MEDS: Carvedilol 12.5 MG Tab PO SCH ×3 (10:00→20:55)
[2020-02-04] MEDS: Thiamine 1,000 MG, Folic Acid 1 MG in Dextrose 5%-0.9% NaCl 1,000 ML IV SCH (11:13)
[2020-02-04] MEDS ORDERED: Succinylcholine 200 MG/10 ML MDV IV ONE (11:50)
[2020-02-04] MEDS: Etomidate 2 MG/ML 20 ML SDV IVPUSH ONE ×2 (11:57→12:03)
[2020-02-04] MEDS: fentaNYL 2,500 MCG in Sodium Chloride 0.9% 200 ML IV SCH (12:21)
[2020-02-04] MEDS ORDERED: Sodium Chloride 0.9% 1,000 ML IV ONE (13:12)
--- NOTE | 2020-02-04 13:35 | PCM.PN ---
- General Info Date of Service: 02/04/20 Subjective Update: Worsening respiratory status and decreased responsiveness Decrease O2 sat during the night, placed on BiPAP - Patient Data Vitals - Most Recent: Last Vital Signs Temp 99 F 02/04/20 12:00 Pulse 92 02/04/20 12:00 Resp 27 H 02/04/20 12:00 BP 148/81 H 02/04/20 08:00 Pulse Ox 94 L 02/04/20 12:05 Weight - Most Recent: 128.42 kg - Exam Quality Assessment: Supplemental Oxygen General: Obtunded Neck: Supple Lungs: Decreased Breath Sounds. No: Crackles, Rales, Rhonchi, Rub, Stridor, Wheezing Cardiovascular: Regular Rhythm, Tachycardia. No: Murmurs, Gallops, Rubs GI/Abdominal Exam: Distended, Rigid. No: Normal Bowel Sounds, Soft, Guarding, Rebound, Tender Extremities: Slow Capillary Refill Peripheral Pulses: 2+: Radial (L), Radial (R) Skin: Warm, Moist Sepsis Event Note - Evaluation Sepsis Screening Result: Sepsis Risk - Problem List & Annotations (1) Pyelonephritis SNOMED Code(s): 09263761 Code(s): N12 - TUBULO-INTERSTITIAL NEPHRITIS, NOT SPCF ACUTE OR CHRONIC Status: Acute Current Visit: Yes (2) Rheumatoid arthritis SNOMED Code(s): 85687503 Code(s): M06.9 - RHEUMATOID ARTHRITIS, UNSPECIFIED Status: Acute Current Visit: Yes (3) Diabetes mellitus SNOMED Code(s): 45297100 Code(s): E11.9 - TYPE 2 DIABETES MELLITUS WITHOUT COMPLICATIONS Status: Acute Current Visit: Yes (4) Chronic alcohol abuse SNOMED Code(s): 526403419 Code(s): F10.10 - ALCOHOL ABUSE, UNCOMPLICATED Status: Acute Current Visit: Yes (5) Current smoker SNOMED Code(s): 25133826 Code(s): F17.200 - NICOTINE DEPENDENCE, UNSPECIFIED, UNCOMPLICATED Status: Acute Current Visit: Yes (6) Acute bacterial prostatitis SNOMED Code(s): 76576294, 271190709001568 Code(s): N41.0 - ACUTE PROSTATITIS Status: Acute Current Visit: No (7) CHF, Congestive heart failure SNOMED Code(s): 03870181 Code(s): I50.9 - HEART FAILURE, UNSPECIFIED Status: Acute Current Visit: No (8) Leukocytosis SNOMED Code(s): 968110824, 841938854 Code(s): D72.829 - ELEVATED WHITE BLOOD CELL COUNT, UNSPECIFIED Status: Acute Current Visit: Yes (9) Hyponatremia SNOMED Code(s): 39010726 Code(s): E87.1 - HYPO-OSMOLALITY AND HYPONATREMIA Status: Acute Current Visit: Yes (10) Normocytic normochromic anemia SNOMED Code(s): 05773132 Code(s): D64.9 - ANEMIA, UNSPECIFIED Status: Acute Current Visit: Yes (11) Acute kidney injury SNOMED Code(s): 64913783, 83259311 Code(s): N17.9 - ACUTE KIDNEY FAILURE, UNSPECIFIED Status: Acute Current Visit: Yes (12) Acute urinary retention SNOMED Code(s): 330036171 Code(s): R33.8 - OTHER RETENTION OF URINE Status: Acute Current Visit: Yes (13) Dyslipidemia SNOMED Code(s): 961586838 Code(s): E78.5 - HYPERLIPIDEMIA, UNSPECIFIED Status: Acute Current Visit: Yes (14) AICD (automatic cardioverter/defibrillator) present SNOMED Code(s): 437606641, 816027051 Code(s): Z95.810 - PRESENCE OF AUTOMATIC (IMPLANTABLE) CARDIAC DEFIBRILLATOR Status: Acute Current Visit: Yes (15) Viral cardiomyopathy SNOMED Code(s): 540177139665093 Code(s): B33.24 - VIRAL CARDIOMYOPATHY Status: Acute Current Visit: Yes - Problem List Review Problem List Initiated/Reviewed/Updated: Yes - Assessment Assessment:: 02/02/2020 Started having increased urinary frequency as well as dysuria and abdominal pain Pain got worse 2 days ago for which he came to the ED for evaluation - Diagnosed with UTI and discharged on Bactrim Pain only continued to get worse for the past 2 days for which he decided to come back in and be evaluated Once in the ED he was found to be tachycardic with 20.31 WBC, lactic acid 1.2, UA was positive Urine culture from 01/30 + for gram negative rods Drinks at least 3 large whiskies a day for "a long time"-->Last drink was yesterday States the AICD has never "gone off" Smokes 3/4 of a pack per day Discussed insertion of Brown catheter with urologist who recommended placing with lidocaine gel--> inserted without difficulty CT abdomen performed to r/o abscess --> ruled out Admitted to ICU Started on Zosyn Pain controlled CIWAA negative Tolerating diet Patient's oxygen level drops significantly while asleep for which bleed in oxygen was added to CPAP machine 02/03/2020 WBC improved form 20.31 to 10.19 Hb down from 11.2 to 8.9, likely hemodilution Na worsened from 135 to 132 GFR worsened from 45 to 37, baseline 60 Magnesium normal, up from 1.3 to 2.3 UO 1,450 Balance +1305 Continues to have intermittent tachycardia, trend 110-115 (sinus rhythm) Tmax 99.8 HbA1c 6.1, unreliable due to anemia Good throughout the day, eating, family came to visit patient - He was ambulating with minimal assistance Later in the evening patient had some altered mental status with hypoxemia for which he was placed on CPAP with bleed in od 10L and pressure of 13 Remained on CPAP rest of the night 02/04/2020 Leukocytosis resolved, 6.54 today NA worse 132 to 131 GFR stable Urine output 1,450 Still tachycardic, sinus Urine culture + for E. coli resistant only to Bactrim Zosyn discontinued Antibiotic day 3 - Plan Plan:: Pyelonephritis 2/2 E. coli Acute bacterial prostatitis Acute kidney injury, stable Hyponatremia, worsened Acute urinary retention s/p Brown catheter placement - Discontinue Zosyn - Start Rocephin - Brown care by nursing - Morphine and [place] 5 for pain control - Monitor urine output - Renally dosed medications Altered mental status Chronic alcohol abuse - CIWAA protocol - Continue Thiamine and folic Acid - Banana bag today Viral cardiomyopathy with heart failure s/p AICD placement - Request prior echocardiogram - Daily weights - Continue home medicatinos Diabetes mellitus, HbA1c- 6.1 in the setting of anemia - Scheduled Accuchecks - Hypoglycemia protocol Hypertension - Hold home medications Rheumatoid arthritis On chronic immunosuppression medication (sulfasalazine) - Continue home medications Current smoker - Nicotine patch - Tobacco cessation education Normocytic normochromic anemia - Work up ordered Dyslipidemia - Restart home meds once available PROPHYLAXIS DVT- Lovenox GI-not indicated CODE STATUS: FULL CODE DISPOSITION: Patient will remain admitted for IV antibiotics, CIWAA protocol
--- NOTE | 2020-02-04 13:35 | PCM.PRNOTE ---
- Free Text/Narrative Note: Endotracheal Intubation Date: 02/04/2020 Time: 12:00PM Indication: Airway protection Attending: Maria Esther Hung MD A time-out was completed verifying correct patient, procedure, site, positioning, and special equipment if applicable. The patient was placed in a flat position. Sedation was obtained using Etomidate 20mg, Succinylcholine 50mg and Etomidate 20mg. The patient was easily ventilated using an Ambu bag. The MAC 4 BLADE was used and inserted into the oropharynx at which time there was a Grade 1 view of the vocal cords. A 8-english endotracheal tube was inserted and visualized going through the vocal cords. The stylette was removed. Colorimetric change was visualized on the CO2 meter. Breath sounds were heard in both lung salazar equally. The endotracheal tube was placed at 27 cm, measured at the teeth. A chest x-ray was ordered to assess forpneumothoraxand verifyendotracheal tube placement, tube repositioned at 24cm at teeth. Estimated Blood Loss: None The patient tolerated the procedure well and there were no complications.
--- NOTE | 2020-02-04 13:38 | CR ---
Chest: Portable view of the chest was obtained. Comparison: Prior chest x-ray of 02/02/20 and 03/03/19. Chronic change is noted within the lateral left costophrenic angle. Heart size and mediastinum are within normal limits for portable technique. Lungs otherwise show no acute parenchymal change. AICD is present. Bony structures are grossly intact. Impression: 1. Findings as noted above. Nothing acute is definitely appreciated. Diagnostic code #2 This report was dictated in MDT
--- NOTE | 2020-02-04 13:58 | CR ---
Chest: Portable supine view of the chest was obtained. Comparison: Prior chest x-ray performed earlier on the same day (11:30 AM). Chronic change within the left base. AICD is noted. Nasogastric tube is seen with tip lying in the area of the stomach. Endotracheal tube is also noted with tip of the endotracheal tube being difficult to see but felt to lie above the natalie. Lung markings are increased which are believed to be accentuated from technique. Impression: 1. Tip of endotracheal tube difficult to see but appears to lie above the natalie. 2. Tip of nasogastric tube lies in the area of the stomach. 3. Nothing acute is otherwise definitely seen. Diagnostic code #2 This report was dictated in MDT
[2020-02-04 17:35] LABS: HEMOGLOBIN A1C 6.1 % (4.50-6.20)
[2020-02-04] MEDS: cefTRIAXone 2 GM in Sodium Chloride 0.9% 100 ML IV SCH (20:08)
[2020-02-04] MEDS: Lisinopril 20 MG Tab PO SCH (20:55)
[2020-02-05] MEDS: fentaNYL 2,500 MCG in Sodium Chloride 0.9% 200 ML IV SCH ×2 (00:14→16:26)
[2020-02-05] MEDS: Sodium Chloride 0.9% 1,000 ML IV SCH ×4 (01:38→21:55)
[2020-02-05] MEDS ORDERED: Sodium Chloride 0.9% 1,000 ML IV ONE (02:21)
[2020-02-05] MEDS ORDERED: Sodium Chloride 0.9% 500 ML IV SCH (03:45)
[2020-02-05] MEDS ORDERED: propofoL 0 ML ONE (04:09)
[2020-02-05] MEDS ORDERED: Norepinephrine 4 MG/4 ML SDV ONE ×2 (05:02→17:28)
[2020-02-05] MEDS ORDERED: Dextrose 5% in Water 250 ML ONE (05:07)
[2020-02-05] MEDS: Norepinephrine 4 MG in Dextrose 5% in Water 246 ML IV SCH ×8 (05:16→21:56)
[2020-02-05] MEDS: Sodium Chloride 0.9% 500 ML ONE ×2 (05:25)
--- NOTE | 2020-02-05 06:40 | CR ---
Chest: Portable supine view of the chest was obtained. Comparison: Prior chest x-ray of 02/04/20. Increased density of the left base and developing pleural effusion is possible. Pulmonary vessels are slightly congested which appears stable. AICD is noted. Right jugular line is seen with tip being within the superior vena cava. Endotracheal tube is seen in satisfactory position above the natalie. Nasogastric tube courses off the inferior edge of the film into the region of the stomach. Impression: 1. Satisfactory position of tubes and catheters as noted above. 2. Possible developing left-sided pleural effusion. 3. Pulmonary vessels are slightly increased believed to be fairly stable from previous exam. Diagnostic code #3 This report was dictated in MDT I agree with preliminary report from [facility], finalized on 02/05/20, 6:25 AM Central Daylight Time
[2020-02-05] MEDS: Carvedilol 12.5 MG Tab PO SCH ×2 (08:01→20:04)
[2020-02-05] MEDS: Aspirin 81 MG Tab.EC PO SCH (08:01)
[2020-02-05] MEDS: Furosemide 40 MG Tab PO SCH (08:18)
[2020-02-05] MEDS: Allopurinol 300 MG Tab PO SCH ×2 (08:18→20:05)
[2020-02-05] MEDS: amLODIPine 5 MG Tab PO SCH (08:18)
--- NOTE | 2020-02-05 08:50 | PCM.PRNOTE ---
- Free Text/Narrative Note: Central Venous Catheter Placement Date: 02/05/20 Time: 5:00AM Indication: Refractory hypotension requiring vasopressor use Attending: Maria Esther Hung MD A time-out was completed verifying correct patient, procedure, site, positioning, and special equipment if applicable. The patient was placed in a dependent position appropriate for central line placement based on the vein to becannulated. The patients right neck was prepped and draped in sterile fashion. 1%Lidocainewas used to anesthetize the surrounding skin area. A triple lumen 7-FrenchCordiscatheter was introduced into the the right internal jugular using the Seldingertechnique and under ultrasound guidance. The catheter was threaded smoothly over the guide wire and appropriate blood return was obtained. Each lumen of the catheter was evacuated of air and flushed with sterile saline. The catheter was then sutured in place to the skin and a sterile dressing applied. Perfusion to the extremity distal to the point of catheter insertion was checked and found to be adequate. Estimated Blood Loss: 7mL The patient tolerated the procedure well and there were no complications.
--- NOTE | 2020-02-05 08:50 | PCM.PRNOTE ---
- Free Text/Narrative Note: Arterial Line Placement Date: 02/05/2020 Time: 7:40 Indication: Hemodynamic monitoring Attending: Maria Esther Hung MD A time-out was completed verifying correct patient, procedure, site, positioning, and special equipment if applicable. Allens test was performed to ensure adequate perfusion. The patients right wrist was prepped and draped in sterile fashion. A20G Arrow arterial line was introduced into the right radial artery. The catheter was threaded over the guide wire and the needle was removed with appropriate pulsatileblood return. The catheter was then sutured in place to the skin and a sterile dressing applied. Perfusion to the extremity distal to the point of catheter insertion was checked and found to be adequate. Estimated Blood Loss: 20mL The patient tolerated the procedure well and there were no complications.
--- NOTE | 2020-02-05 08:50 | PCM.PN ---
- General Info Date of Service: 02/05/20 Subjective Update: INTERVAL HISTORY - Patient's respiratory status continued to decline and patient became unresponsive--> decision was made to intubate - Throughout the day patient's blood pressure continued to drop and was given multiple boluses of IVF with temporary response - Later in the evening patient's blood pressure stopped responding to boluses for which central line was placed and he was started on Levophed - Arterial line placed as well Vital Signs: MAP trend: after 8AM 53-71 HR trend: 89-111 Tmax: 99 SatO2: >89% Drips and IVF: Fentanyl @ 15 Versed @ 15mg Levophed @17 NS @ 200 Mechanical Ventilation: Intubation day: 02/04/2020 Mode: AC/VC Vt: 500 FiO2: 100 PEEP: 10 RR: 18 I/Os: UO: 2,100 24h balance: +2,876 Balance since admission: +4,181 BM: 02/02 New results: WBC down from 6.56 - 4.22 Hemoglobin down from 9 - 7.2 Platelets down from 180 - 157 GFR down from 37 - 31 CO2 down from 22 to 20 ABGs 7.17/55.9/88/97/79.3 Infectious Disease: Antibiotics: Rocephin 02/03, antibiotic day 4 - Zosyn 02/01-02/02 Cultures: Urine with E. coli resistant only to Bactrim Diet: NPO Lines and tubes: Brown catheter 02/02/20 ETT: 02/04/20 NG tube: 02/04/20 Right internal jugular central line: 02/05/20 Right radial arterial line: 02/05/20 - Patient Data Vitals - Most Recent: Last Vital Signs Temp 98.3 F 02/05/20 08:00 Pulse 85 02/05/20 08:00 Resp 24 H 02/05/20 08:00 BP 125/62 02/05/20 08:00 Pulse Ox 96 02/05/20 08:26 Weight - Most Recent: 131.542 kg - Exam Quality Assessment: Supplemental Oxygen, Central Line/PICC, Urine Catheter, DVT Prophylaxis. No: Skin Breakdown General: Sedated HEENT: Pupils Equal, Pupils Reactive, Mucous Membr. Moist/[place] Neck: Supple Lungs: Decreased Breath Sounds, Crackles, Rhonchi. No: Rales, Rub, Stridor, Wheezing Cardiovascular: Regular Rhythm, Tachycardia. No: Murmurs, Gallops, Rubs GI/Abdominal Exam: Distended, Rigid, Abnormal Bowel Sounds. No: Soft, Guarding Extremities: Normal Inspection, Slow Capillary Refill Peripheral Pulses: 2+: Radial (L), Radial (R) Skin: Dry, Cool Sepsis Event Note - Evaluation Sepsis Screening Result: Sepsis Risk - Problem List & Annotations (1) Pyelonephritis SNOMED Code(s): 95230614 Code(s): N12 - TUBULO-INTERSTITIAL NEPHRITIS, NOT SPCF ACUTE OR CHRONIC Status: Acute Current Visit: Yes (2) Rheumatoid arthritis SNOMED Code(s): 93626304 Code(s): M06.9 - RHEUMATOID ARTHRITIS, UNSPECIFIED Status: Acute Current Visit: Yes (3) Diabetes mellitus SNOMED Code(s): 85422353 Code(s): E11.9 - TYPE 2 DIABETES MELLITUS WITHOUT COMPLICATIONS Status: Acute Current Visit: Yes (4) Chronic alcohol abuse SNOMED Code(s): 812892639 Code(s): F10.10 - ALCOHOL ABUSE, UNCOMPLICATED Status: Acute Current Visit: Yes (5) Current smoker SNOMED Code(s): 91193448 Code(s): F17.200 - NICOTINE DEPENDENCE, UNSPECIFIED, UNCOMPLICATED Status: Acute Current Visit: Yes (6) Acute bacterial prostatitis SNOMED Code(s): 54455438, 243046704076700 Code(s): N41.0 - ACUTE PROSTATITIS Status: Acute Current Visit: No (7) CHF, Congestive heart failure SNOMED Code(s): 87563322 Code(s): I50.9 - HEART FAILURE, UNSPECIFIED Status: Acute Current Visit: No (8) Leukocytosis SNOMED Code(s): 814886186, 350529895 Code(s): D72.829 - ELEVATED WHITE BLOOD CELL COUNT, UNSPECIFIED Status: Acute Current Visit: Yes (9) Hyponatremia SNOMED Code(s): 36223261 Code(s): E87.1 - HYPO-OSMOLALITY AND HYPONATREMIA Status: Acute Current Visit: Yes (10) Normocytic normochromic anemia SNOMED Code(s): 12539188 Code(s): D64.9 - ANEMIA, UNSPECIFIED Status: Acute Current Visit: Yes (11) Acute kidney injury SNOMED Code(s): 55412966, 31733987 Code(s): N17.9 - ACUTE KIDNEY FAILURE, UNSPECIFIED Status: Acute Current Visit: Yes (12) Acute urinary retention SNOMED Code(s): 468607611 Code(s): R33.8 - OTHER RETENTION OF URINE Status: Acute Current Visit: Yes (13) Dyslipidemia SNOMED Code(s): 830803859 Code(s): E78.5 - HYPERLIPIDEMIA, UNSPECIFIED Status: Acute Current Visit: Yes (14) AICD (automatic cardioverter/defibrillator) present SNOMED Code(s): 405546199, 621681918 Code(s): Z95.810 - PRESENCE OF AUTOMATIC (IMPLANTABLE) CARDIAC DEFIBRILLATOR Status: Acute Current Visit: Yes (15) Viral cardiomyopathy SNOMED Code(s): 274149619107237 Code(s): B33.24 - VIRAL CARDIOMYOPATHY Status: Acute Current Visit: Yes (16) Acute hypoxemic respiratory failure SNOMED Code(s): 316524724 Code(s): J96.01 - ACUTE RESPIRATORY FAILURE WITH HYPOXIA Status: Acute Current Visit: Yes (17) Acute hypotension SNOMED Code(s): 30154743, 769102459 Code(s): I95.9 - HYPOTENSION, UNSPECIFIED Status: Acute Current Visit: Yes (18) Lymphopenia Status: Acute Current Visit: Yes (19) Thrombocytopenia SNOMED Code(s): 897329006 Code(s): D69.6 - THROMBOCYTOPENIA, UNSPECIFIED Status: Acute Current Visit: Yes (20) High anion gap metabolic acidosis SNOMED Code(s): 13849565 Code(s): E87.2 - ACIDOSIS Status: Acute Current Visit: Yes (21) Acute respiratory acidosis SNOMED Code(s): 29791248 Code(s): E87.2 - ACIDOSIS Status: Acute Current Visit: Yes - Problem List Review Problem List Initiated/Reviewed/Updated: Yes - Assessment Assessment:: 02/02/2020 Started having increased urinary frequency as well as dysuria and abdominal pain Pain got worse 2 days ago for which he came to the ED for evaluation - Diagnosed with UTI and discharged on Bactrim Pain only continued to get worse for the past 2 days for which he decided to come back in and be evaluated Once in the ED he was found to be tachycardic with 20.31 WBC, lactic acid 1.2, UA was positive Urine culture from 01/30 + for gram negative rods Drinks at least 3 large whiskies a day for "a long time"-->Last drink was yesterday States the AICD has never "gone off" Smokes 3/4 of a pack per day Discussed insertion of Brown catheter with urologist who recommended placing with lidocaine gel--> inserted without difficulty CT abdomen performed to r/o abscess --> ruled out Admitted to ICU Started on Zosyn Pain controlled CIWAA negative Tolerating diet Patient's oxygen level drops significantly while asleep for which bleed in oxygen was added to CPAP machine 02/03/2020 WBC improved form 20.31 to 10.19 Hb down from 11.2 to 8.9, likely hemodilution Na worsened from 135 to 132 GFR worsened from 45 to 37, baseline 60 Magnesium normal, up from 1.3 to 2.3 UO 1,450 Balance +1305 Continues to have intermittent tachycardia, trend 110-115 (sinus rhythm) Tmax 99.8 HbA1c 6.1, unreliable due to anemia Good throughout the day, eating, family came to visit patient - He was ambulating with minimal assistance Later in the evening patient had some altered mental status with hypoxemia for which he was placed on CPAP with bleed in od 10L and pressure of 13 Remained on CPAP rest of the night 02/04/2020 Leukocytosis resolved, 6.54 today NA worse 132 to 131 GFR stable Urine output 1,450 Still tachycardic, sinus Urine culture + for E. coli resistant only to Bactrim Zosyn discontinued and started on Rocephin Developed worsening or mental status until he became unresponsive and was in obvious respiratory distress - Intubated and placed on mechanical ventilation Started on sedation with versed and fentanyl Throughout the day patient's blood pressure continued to drop and was given multiple boluses of IVF with temporary response 02/05/2020 Was called by nursing staff that patient's hypotension continued despite IVF Central line was placed and patient was started on Levophed Arterial line was placed as well - Plan Plan:: BY SYSTEMS: Neurology: Minimize central acting medications as possible. Frequent neurologic exams by nursing staff. Continue sedation with versed and fentanyl for now and taper down as tolerated. Banana bag #2 CT head to r/o acute pathology Respiratory: Continue mechanical ventilation. Endotracheal tube care by RT. Scheduled nebulizations. Regular suctioning. Aspiration precautions. ABGs as needed to evaluate need for MV parameter adjustments. CTA chest to r/o PE Cardiovascular: Sepsis protocol. IVF resuscitation. CVP monitoring with PRN bolus if <8. Continue vasopressors for now and wean off as tolerated for MAP goal >65 Transfuse 1u PRBCs GI and Nutrition: NG tube care. Monitor residuals and adjust tube feedings rate as tolerated. PRN bowel regimen. Dietary consult Kidney and Electrolytes: Strict monitoring of intake, output and overall fluid balance. Maintain neutral as possible. Avoid nephrotoxic medications. Medications to be dosed according to renal function. Monitor electrolytes and replace as needed. Trend creatinine and BUN. Endocrine: Scheduled Accu-checks. Hypoglycemia protocol in place. Infectious Disease: Continue Rocephin, day 4 Trend temperature. Panculture if febrile. Procalcitonin pending Hematology and Coagulation: No active bleeding, no coagulopathy to correct Transfuse 1u PRBC Goal hemoglobin >7g Musculoskeletal and Skin: Bed turn rotation by nursing staff. Daily evaluation for pressure ulcers. PROPHYLAXIS: DVT- Lovenox GI- Pantoprazole CODE STATUS: FULL CODE DISPOSITION: Will remain admitted to ICU for mechanical ventilation and pressor support.
[2020-02-05] MEDS: Nicotine 21 MG/24 Hr Patch TRDERM SCH (09:40)
[2020-02-05] MEDS: Enoxaparin 40 MG/0.4 ML Syringe SUBCUT SCH ×2 (09:40→20:45)
[2020-02-05] MEDS: Levalbuterol HCl 1.25 MG/0.5 ML Neb NEB PRN (10:48)
[2020-02-05] MEDS: Thiamine 1,000 MG, Folic Acid 1 MG in Dextrose 5%-0.9% NaCl 1,000 ML IV SCH (11:15)
[2020-02-05] MEDS ORDERED: Sodium Chloride 0.9% 1,000 ML ONE (13:31)
[2020-02-05] MEDS ORDERED: Albuterol 0.083% 2.5 MG/3 ML Neb Soln ONE (13:33)
[2020-02-05] MEDS ORDERED: Sodium Chloride 0.9% 10 ML Syringe FLUSH PRN (13:43)
[2020-02-05] MEDS ORDERED: Iopamidol 755 MG/ML 50 ML Bottle IVPUSH ONE (13:43)
[2020-02-05] MEDS ORDERED: Iopamidol 755 Mg/ML 100 ML Bottle IVPUSH ONE (13:43)
[2020-02-05] MEDS ORDERED: Sodium Chloride 0.9% 100 ML IV SCH (13:45)
--- NOTE | 2020-02-05 14:22 | CR ---
Chest: Portable view of the chest was obtained. Comparison: Prior chest x-ray performed earlier on the same date (4:51 AM). Heart is enlarged. Pulmonary vessels are again congested. Haziness within the left lung base most likely due to pleural effusion. Endotracheal tube is seen with eyes above the natalie. Right jugular line is stable. AICD is again noted. Nasogastric tube is seen with tip lying within the stomach. Impression: 1. Satisfactory position tubes and catheters. 2. Other findings as noted above. Diagnostic code #3 This report was dictated in MDT
--- NOTE | 2020-02-05 14:36 | CT ---
CT chest Technique: Multiple axial sections through the chest were obtained. Reconstructed coronal and sagittal images were reviewed. Comparison: No prior chest CT is available, chest x-ray performed on the same day is available. Findings: Small mediastinal lymph nodes are seen which are believed to be within normal limits. Aorta shows no aneurysm. No evidence of pulmonary embolism within the main or segmental branches. Diffuse consolidation is seen within the posterior lungs on both sides. Additional consolidation is seen within portions of the posterior left upper lung. Lungs otherwise are clear. Heart is enlarged. Endotracheal tube is seen with tip lying below the clavicles and above the natalie. Nasogastric tube is seen with tip located within the stomach. There is a right jugular line but tip is not seen because of contrast as well as artifact from AICD. Bone window settings shows no discrete osseous finding. Impression: 1. Consolidation within both lower lungs as well as posterior left upper lung. Findings most likely represent diffuse pneumonia. 2. Cardiomegaly. 3. Satisfactory position of tubes and catheters as described above. 4. No findings of pulmonary embolism within the main or segmental branches. Diagnostic code #3 This report was dictated in MDT
--- NOTE | 2020-02-05 14:36 | CT ---
Head CT Technique: Multiple axial sections through the brain were obtained. Intravenous contrast was not utilized. Comparison: No prior intracranial imaging is available. Findings: Ventricles along with basal cisterns and sulci the convexities are mildly prominent. No abnormal parenchymal densities are seen. No evidence of intracranial hemorrhage. No midline shift or mass-effect is seen. Bone window settings were reviewed. Diffuse mucosal thickening and opacification seen within the mastoid sinuses. Mild mucosal thickening is seen within the ethmoid sinuses. No acute calvarial abnormality is appreciated. Impression: 1. Diffusely opacified mastoid sinuses. 2. Mild mucosal thickening within the ethmoid sinuses. 3. No acute intracranial abnormality is appreciated. Diagnostic code #2 This report was dictated in MDT
[2020-02-05 20:05] VITALS: PULSE 84
[2020-02-05] MEDS: Lisinopril 20 MG Tab PO SCH (20:05)
[2020-02-05] MEDS: Pantoprazole 40 MG Vial IVPUSH SCH (20:41)
[2020-02-05] MEDS: cefTRIAXone 2 GM in Sodium Chloride 0.9% 100 ML IV SCH (20:42)
[2020-02-06] MEDS ORDERED: Lactated Ringers 1,000 ML IV ONE (00:48)
[2020-02-06] MEDS: Sodium Chloride 0.9% 1,000 ML IV SCH ×3 (01:08→06:10)
[2020-02-06] MEDS: Norepinephrine 4 MG in Dextrose 5% in Water 246 ML IV SCH ×6 (01:52→08:50)
[2020-02-06] MEDS: Hydrocortisone Sodium Succinate 100 MG/2 ML SDV IVPUSH SCH ×2 (02:05→05:53)
[2020-02-06] MEDS: fentaNYL 2,500 MCG in Sodium Chloride 0.9% 200 ML IV SCH (05:42)
[2020-02-06] MEDS ORDERED: Piperacillin/Tazobactam 4.5 GM in Sodium Chloride 0.9% 100 ML IV SCH ×2 (06:45→19:00)
[2020-02-06] MEDS ORDERED: Levofloxacin/Dextrose 5%-Water 750 MG in Premix Bag 1 BAG IV SCH ×2 (07:00→09:00)
[2020-02-06] MEDS ORDERED: Hydrocortisone Sodium Succinate 100 MG/2 ML SDV IVPUSH SCH (07:00)
--- NOTE | 2020-02-06 07:24 | PCM.DCSUM1 ---
Discharge Summary - Hospital Course HPI Initial Comments: Started having increased urinary frequency as well as dysuria and abdominal pain Pain got worse 2 days ago associated with a fever of 104.2 for which he came to the ED for evaluation - Diagnosed with UTI and discharged on Bactrim Pain only continued to get worse for the past 2 days for which he decided to come back in for further evaluation. Describes pain as 10/10, described as "colicky", located mainly on right flank initially but radiated to lower artem-abdomen. Associated to fever, chills, decreased oral intake, dark and foul smelling urine as well as difficulty to void No changes with hydrocodone or tramadol Denies nausea, vomiting, diarrhea or constipation - Discharge Data Discharge Date: 02/06/20 Discharge Disposition: DC/Tfer to Acute Hospital 02 Condition: Good - Referral to Home Health Primary Care Physician: Lisa Avina MD - Discharge Diagnosis/Problem(s) (1) Pyelonephritis SNOMED Code(s): 07157683 ICD Code: N12 - TUBULO-INTERSTITIAL NEPHRITIS, NOT SPCF ACUTE OR CHRONIC Status: Acute Current Visit: Yes (2) Rheumatoid arthritis SNOMED Code(s): 91194115 ICD Code: M06.9 - RHEUMATOID ARTHRITIS, UNSPECIFIED Status: Acute Current Visit: Yes (3) Diabetes mellitus SNOMED Code(s): 05751144 ICD Code: E11.9 - TYPE 2 DIABETES MELLITUS WITHOUT COMPLICATIONS Status: Acute Current Visit: Yes (4) Chronic alcohol abuse SNOMED Code(s): 772880915 ICD Code: F10.10 - ALCOHOL ABUSE, UNCOMPLICATED Status: Acute Current Visit: Yes (5) Current smoker SNOMED Code(s): 58706385 ICD Code: F17.200 - NICOTINE DEPENDENCE, UNSPECIFIED, UNCOMPLICATED Status: Acute Current Visit: Yes (6) Acute bacterial prostatitis SNOMED Code(s): 03090780, 742411944327147 ICD Code: N41.0 - ACUTE PROSTATITIS Status: Acute Current Visit: No (7) CHF, Congestive heart failure SNOMED Code(s): 78330907 ICD Code: I50.9 - HEART FAILURE, UNSPECIFIED Status: Acute Current Visit: No (8) Leukocytosis SNOMED Code(s): 655903032, 244369314 ICD Code: D72.829 - ELEVATED WHITE BLOOD CELL COUNT, UNSPECIFIED Status: Acute Current Visit: Yes (9) Hyponatremia SNOMED Code(s): 75827940 ICD Code: E87.1 - HYPO-OSMOLALITY AND HYPONATREMIA Status: Acute Current Visit: Yes (10) Normocytic normochromic anemia SNOMED Code(s): 92844905 ICD Code: D64.9 - ANEMIA, UNSPECIFIED Status: Acute Current Visit: Yes (11) Acute kidney injury SNOMED Code(s): 93092570, 07057145 ICD Code: N17.9 - ACUTE KIDNEY FAILURE, UNSPECIFIED Status: Acute Current Visit: Yes (12) Acute urinary retention SNOMED Code(s): 611892875 ICD Code: R33.8 - OTHER RETENTION OF URINE Status: Acute Current Visit: Yes (13) Dyslipidemia SNOMED Code(s): 907720052 ICD Code: E78.5 - HYPERLIPIDEMIA, UNSPECIFIED Status: Acute Current Visit: Yes (14) AICD (automatic cardioverter/defibrillator) present SNOMED Code(s): 861623409, 758275223 ICD Code: Z95.810 - PRESENCE OF AUTOMATIC (IMPLANTABLE) CARDIAC DEFIBRILLATOR Status: Acute Current Visit: Yes (15) Viral cardiomyopathy SNOMED Code(s): 752160098898884 ICD Code: B33.24 - VIRAL CARDIOMYOPATHY Status: Acute Current Visit: Yes (16) Acute hypoxemic respiratory failure SNOMED Code(s): 694109912 ICD Code: J96.01 - ACUTE RESPIRATORY FAILURE WITH HYPOXIA Status: Acute Current Visit: Yes (17) Acute hypotension SNOMED Code(s): 09310509, 858937072 ICD Code: I95.9 - HYPOTENSION, UNSPECIFIED Status: Acute Current Visit: Yes (18) Lymphopenia Status: Acute Current Visit: Yes (19) Thrombocytopenia SNOMED Code(s): 987695833 ICD Code: D69.6 - THROMBOCYTOPENIA, UNSPECIFIED Status: Acute Current Visit: Yes (20) High anion gap metabolic acidosis SNOMED Code(s): 67875253 ICD Code: E87.2 - ACIDOSIS Status: Acute Current Visit: Yes (21) Acute respiratory acidosis SNOMED Code(s): 63568878 ICD Code: E87.2 - ACIDOSIS Status: Acute Current Visit: Yes - Patient Summary/Data Hospital Course: 02/02/2020 Started having increased urinary frequency as well as dysuria and abdominal pain Pain got worse 2 days ago for which he came to the ED for evaluation - Diagnosed with UTI and discharged on Bactrim Pain only continued to get worse for the past 2 days for which he decided to come back in and be evaluated Once in the ED he was found to be tachycardic with 20.31 WBC, lactic acid 1.2, UA was positive Urine culture from 01/30 + for gram negative rods Drinks at least 3 large whiskies a day for "a long time"-->Last drink was yesterday States the AICD has never "gone off" Smokes 3/4 of a pack per day Discussed insertion of Brown catheter with urologist who recommended placing with lidocaine gel--> inserted without difficulty CT abdomen performed to r/o abscess --> ruled out Admitted to ICU Started on Zosyn Pain controlled CIWAA negative Tolerating diet Patient's oxygen level drops significantly while asleep for which bleed in oxygen was added to CPAP machine 02/03/2020 WBC improved form 20.31 to 10.19 Hb down from 11.2 to 8.9, likely hemodilution Na worsened from 135 to 132 GFR worsened from 45 to 37, baseline 60 Magnesium normal, up from 1.3 to 2.3 UO 1,450 Balance +1305 Continues to have intermittent tachycardia, trend 110-115 (sinus rhythm) Tmax 99.8 HbA1c 6.1, unreliable due to anemia Good throughout the day, eating, family came to visit patient - He was ambulating with minimal assistance Later in the evening patient had some altered mental status with hypoxemia for which he was placed on CPAP with bleed in od 10L and pressure of 13 Remained on CPAP rest of the night 02/04/2020 Leukocytosis resolved, 6.54 today NA worse 132 to 131 GFR stable Urine output 1,450 Still tachycardic, sinus Urine culture + for E. coli resistant only to Bactrim Zosyn discontinued and started on Rocephin Developed worsening or mental status until he became unresponsive and was in obvious respiratory distress - Intubated and placed on mechanical ventilation Started on sedation with versed and fentanyl Throughout the day patient's blood pressure continued to drop and was given multiple boluses of IVF with temporary response 02/05/2020 Was called by nursing staff that patient's hypotension continued despite IVF Central line was placed and patient was started on Levophed Arterial line was placed as well Labs - Hb 7.2 down from 9--> ordered 1u PRBCs - Plt down from 180 to 157 - GFR up to 37 from 31 Procalcitonin pending Around 11AM patient developed hypoxemia, down to low 70's - Did not respond to increase in FiO2 to 100% - Started bagging patient and after 30 minutes there was no change - Rapid response was called - Maxed Levophed - Started vasopressin - CT head--> negative - CT chest-->negative for PE - Interval worsening of lung parenchyma - Consolidation within both lower lungs as well as posterior left upper lung, most likely diffuse pneumonia - Cardiomegaly Due to rapid progression of illness, it raises suspicion for COVID-19 infection - Rapid and confirmatory COVID testing sent - Placed on maximum precautions - Could also be healthcare associated pneumonia--> started on vancomycin, levofloxacin and Zosyn Hypotension worsened with MAP in low 50s despite maxed out Levophed and vasopressin - Started on Hydrocortisone 02/06/2020 Hypotensive still--> increased Hydrocortisone to 100 q6h Decision to transfer Accepted at [facility] - Patient Instructions Diet: NPO - Discharge Plan *PRESCRIPTION DRUG MONITORING PROGRAM REVIEWED*: Not Applicable *COPY OF PRESCRIPTION DRUG MONITORING REPORT IN PATIENT ZUNILDA: Not Applicable Home Medications: Home Meds Aspirin [Tim Chewable Aspirin] 81 mg PO DAILY 12/12/13 [History] Lisinopril 20 mg PO DAILY 12/12/13 [History] carvediloL [Coreg] 25 mg PO BID 12/12/13 [History] Allopurinol [Zyloprim] 300 mg PO BID 07/20/15 [History] metFORMIN [Glucophage XR] 500 mg PO BID 07/08/16 [History] Omeprazole 20 mg PO DAILY #30 cap.cr 07/26/16 [Rx] Fenofibrate 160 mg PO DAILY 06/21/19 [History] Furosemide [Lasix] 40 mg PO DAILY 06/21/19 [History] amLODIPine Besylate [Norvasc] 5 mg PO DAILY 06/21/19 [History] Oxygen Therapy Mode: Mechanical Ventilation FiO2: 100 Maintain SPO2% less than: 92 Maintain SpO2% greater than: 88 Patient Handouts: Alcohol Use Disorder, Pyelonephritis, Adult, [id number], Steps to Quit Smoking Forms: ED Department Discharge Referrals: Lisa Avina MD [Primary Care Provider] - - Discharge Summary/Plan Comment DC Time >30 min.: Yes - General Info Date of Service: 02/06/20 Subjective Update: INTERVAL HISTORY - Refractory hypoxemia episode - CT negative for PE - New consolidation on both posterior lungs - CT head negative - Refractory hypotension - Added vasopressin - Added hydrocortisone Vital Signs: MAP trend: 83 at 3PM then 51-60 up to this morning HR trend: 79-95 Tmax: 99.9 SatO2: 70-96% Drips and IVF: Fentanyl @ 15ml Versed @15mg Levophed @ 30mcg Vasopressin @ 8u NS @250 Mechanical Ventilation: Intubation day: 02/04/2020 Mode: AC/VC Vt: 600 FiO2: 100 PEEP: 15 RR: 18 I/E: 1:1.2 PIP: 32 Pmean: 22 Vte: 11.7 I/Os: UO: 1,450 24h balance: +4575 Balance since admission: +8756 BM: 02/02 New results: WBC down from 6.56 - 4.22 Hemoglobin down from 9 - 7.2 Platelets down from 180 - 157 GFR down from 37 - 31 CO2 down from 22 to 20 ABGs 7.15/46.8/125/15.8/96 Infectious Disease: Antibiotics: Rocephin 02/03, antibiotic day 4 - Zosyn 02/01-02/02 - Started on Vancomycin, Zosyn and Levaquin Cultures: Urine with E. coli resistant only to Bactrim Diet: NPO Lines and tubes: Brown catheter 02/02/20 ETT: 02/04/20 NG tube: 02/04/20 Right internal jugular central line: 02/05/20 Right radial arterial line: 02/05/20 - Patient Data Vitals - Most Recent: Last Vital Signs Temp 98.4 F 02/06/20 03:22 Pulse 84 02/05/20 20:04 Resp 18 02/06/20 07:00 BP 91/54 L 02/06/20 07:00 Pulse Ox 97 02/06/20 07:00 Weight - Most Recent: 141.022 kg Comments:: PHYSICAL EXAM CONFOUNDED BY BODY HABITUS - Exam Quality Assessment: Reports: Supplemental Oxygen, Central Line/PICC, Urine Catheter General: Reports: Sedated HEENT: Denies: Mucous Membr. Moist/[place] Neck: Reports: Supple Lungs: Reports: Decreased Breath Sounds, Rales. Denies: Crackles, Rhonchi, Rub, Stridor, Wheezing Cardiovascular: Reports: Regular Rate, Regular Rhythm. Denies: Murmurs, Gallops, Rubs GI/Abdominal Exam: Distended, Rigid. No: Normal Bowel Sounds (hypoactive), Guarding, Rebound Extremities: Other (forced eversion of left foot)
[2020-02-06] MEDS: Enoxaparin 40 MG/0.4 ML Syringe SUBCUT SCH (08:24)
[2020-02-06] MEDS: Pantoprazole 40 MG Vial IVPUSH SCH (08:24)
[2020-02-06] MEDS: Nicotine 21 MG/24 Hr Patch TRDERM SCH (08:27)
--- NOTE | 2020-02-06 08:34 | CR ---
Chest: Portable supine view of the chest was obtained. Comparison: Prior chest x-ray of 02/05/20. Heart is enlarged. Haziness within both lung bases presumably representing areas of consolidation as noted on recent chest CT. Pulmonary vessels remain mildly increased. Heart size is enlarged. AICD is noted. Stable position of nasogastric tube, endotracheal tube and right jugular line. Impression: 1. Findings as described above. 2. No change is appreciated from previous exam. Diagnostic code #2 This report was dictated in MDT
[2020-02-06] MEDS ORDERED: Vancomycin 2 GM in Sodium Chloride 0.9% 500 ML IV ONE (09:00)
[2020-02-06 10:28] VITALS: BP 128/67
[2020-02-06] MEDS ORDERED: Piperacillin/Tazobactam 4.5 GM in Sodium Chloride 0.9% 100 ML IV ONE (11:00)
== END 2020-02-06 10:00 | DRG 463 ==
LOC: JD.ED 07:30 → JD.ICU 15:15
PROVIDERS: ADMIT Internal Medicine; ATTEND Internal Medicine
PROC: 0BH17EZ Insertion of Endotracheal Airway into Trachea, Via Natural or Artificial Opening (ICD-10-PCS; principal; 2020-02-04)
PROC: 5A1945Z Respiratory Ventilation, 24-96 Consecutive Hours (ICD-10-PCS; 2020-02-04)
PROC: 03HB33Z Insertion of Infusion Device into Right Radial Artery, Percutaneous Approach (ICD-10-PCS; 2020-02-05)
PROC: 3E033XZ Introduction of Vasopressor into Peripheral Vein, Percutaneous Approach (ICD-10-PCS; 2020-02-05)
PROC: 05HM33Z Insertion of Infusion Device into Right Internal Jugular Vein, Percutaneous Approach (ICD-10-PCS; 2020-02-05)
PROC: 30233N1 Transfusion of Nonautologous Red Blood Cells into Peripheral Vein, Percutaneous Approach (ICD-10-PCS; 2020-02-05)
DX: N12 Tubulo-interstitial nephritis, not specified as acute or chronic (principal); J18.9 Pneumonia, unspecified organism; J96.01 Acute respiratory failure with hypoxia; N17.9 Acute kidney failure, unspecified; I95.9 Hypotension, unspecified; N41.0 Acute prostatitis; B96.89 Other specified bacterial agents as the cause of diseases classified elsewhere; Z20.828 Contact with and (suspected) exposure to other viral communicable diseases; I11.0 Hypertensive heart disease with heart failure; I50.9 Heart failure, unspecified; E87.1 Hypo-osmolality and hyponatremia; M06.9 Rheumatoid arthritis, unspecified; E11.9 Type 2 diabetes mellitus without complications; F10.10 Alcohol abuse, uncomplicated; B96.20 Unspecified Escherichia coli [E. coli] as the cause of diseases classified elsewhere; D64.9 Anemia, unspecified; E78.5 Hyperlipidemia, unspecified; B33.24 Viral cardiomyopathy; D69.6 Thrombocytopenia, unspecified; E87.2 Acidosis; F17.210 Nicotine dependence, cigarettes, uncomplicated; E78.00 Pure hypercholesterolemia, unspecified; Z96.659 Presence of unspecified artificial knee joint; E66.9 Obesity, unspecified; G47.33 Obstructive sleep apnea (adult) (pediatric); R33.9 Retention of urine, unspecified; Z95.810 Presence of automatic (implantable) cardiac defibrillator; Z88.0 Allergy status to penicillin; Z88.1 Allergy status to other antibiotic agents; Z79.82 Long term (current) use of aspirin; Z79.84 Long term (current) use of oral hypoglycemic drugs; Z79.899 Other long term (current) drug therapy; Z90.49 Acquired absence of other specified parts of digestive tract; Z68.41 Body mass index [BMI] 40.0-44.9, adult
CPT/HCPCS: 31500; 36415; 36430; 36556; 36569; 36600; 51702; 70450; 70450-26; 71045; 71045-26; 71046; 71046-26; 71275; 71275-26; 74177; 74177-26; 80048; 80053; 80061; 80307; 81001; 82728; 82803; 82962; 83036; 83605; 83615; 83735; 84100; 84145; 84484; 85014; 85018; 85025; 85379; 85610; 85652; 85730; 86140; 86850; 86900; 86901; 86922; 87040; 87086; 87088; 87184; 87186; 93005; 93010; 94002; 94003; 94640; 96361; 96365; 99222; 99231; 99233; 99239; 99285; 99285-25; A9270-GY; C9113; J0330; J0696; J1650; J1720; J1885; J1956; J2060; J2250; J2270; J2543; J3010; J3411; J3475; J3490; J7030; J7040; J7042; J7050; J7060; J7120; P9016; Q9967; U0002

== ENCOUNTER → 2021-07-16 | Day surgery (SDC) | payer BC | LOC: JD.LAB 09:00 | PROVIDERS: ATTEND Surgery | DX: Z01.812 Encounter for preprocedural laboratory examination (principal); Z20.822 Contact with and (suspected) exposure to COVID-19; E11.22 Type 2 diabetes mellitus with diabetic chronic kidney disease; N18.31 Chronic kidney disease, stage 3a; D63.1 Anemia in chronic kidney disease; N17.9 Acute kidney failure, unspecified | CPT/HCPCS: U0002 ==

== ENCOUNTER 2021-07-20 07:03 | Day surgery (SDC) | payer BC, OTHER, SELFPAY ==
[~2021-07-20 07:03] MED LIST: Lactated Ringers 1,000 ML IV SCH; Lidocaine 1%/Sod Bicarbonate in NS 8.4% 1 ML Syringe IDERM PRN; Sodium Chloride 0.9% 10 ML Syringe FLUSH PRN
--- NOTE | 2021-07-20 07:21 | PCM.PREANE ---
Preanesthetic Assessment - Anesthesia/Transfusion/Family Hx Anesthesia History: Prior Anesthesia Without Reaction Family History of Anesthesia Reaction: No Transfusion History: No Prior Transfusion(s) Intubation History: Unknown - Review of Systems General: No Symptoms Pulmonary: No Symptoms Cardiovascular: No Symptoms Gastrointestinal: No Symptoms Neurological: No Symptoms Other: Reports: Diabetes (BS 123@0530) - Physical Assessment NPO Status Date: 07/19/21 NPO Status Time: 20:45 ASA Class: 3 Mental Status: Alert & Oriented x3 Airway Class: Mallampati = 3 Dentition: Reports: Normal Dentition Thyro-Mental Finger Breadths: 2 Mouth Opening Finger Breadths: 2 ROM/Head Extension: Full Lungs: Clear to Auscultation, Normal Respiratory Effort Cardiovascular: Regular Rate, Regular Rhythm - Allergies Allergies/Adverse Reactions: Allergies Allergy/AdvReac Type Severity Reaction Status Date / Time amoxicillin [Amoxicillin] Allergy Mild Cannot Verified 02/03/20 10:03 Remember erythromycin base Allergy Mild Cannot Verified 02/03/20 10:03 [Erythromycin Base] Remember - Anesthesia Plan Beta Micheline: Carvedilol Med Last Dose Date: 07/20/21 Med Last Dose Time: 05:30 - Acknowledgements Anesthesia Type Planned: MAC Pt an Appropriate Candidate for the Planned Anesthesia: Yes Alternatives and Risks of Anesthesia Discussed w Pt/Guardian: Yes Pt/Guardian Understands and Agrees with Anesthesia Plan: Yes PreAnesthesia Questionnaire HEENT History: Reports: Impaired Vision, Other (See Below) Other HEENT History: wears contacts, otorrhea Cardiovascular History: Reports: Cardiomyopathy, Heart Failure, High Cholesterol, Hypertension, Pacemaker, SOB on Exertion Other Cardiovascular History: AICD-pt states "has never gone off and feels did not need this". EKG 9-18 SR 78 old inf infarct prob left atrial enlargement. Echo 8-19 EF 50-55% Respiratory History: Reports: Sleep Apnea (CPAP) Gastrointestinal History: Reports: Colon Polyp, Diverticulosis, Other (See Below) Other Gastrointestinal History: elevated liver enzymes, hypoechoic masses Genitourinary History: Reports: Other (See Below) Other Genitourinary History: hematuria Musculoskeletal History: Reports: Fracture, Gout, Other (See Below) Other Musculoskeletal History: unequal leg legnth, plantar fascitis Endocrine/Metabolic History: Reports: Diabetes, Type II, Obesity/BMI 30+ Hematologic History: Reports: Other (See Below) Other Hematologic History: leukocytosis Oncologic (Cancer) History: Reports: None Other Dermatologic History: lipoma to L shoulder, lesion excision, hematoma evacuation - Past Surgical History HEENT Surgical History: Reports: Myringotomy w Tube(s), Tonsillectomy Cardiovascular Surgical History: Reports: AICD, Pacer GI Surgical History: Reports: Cholecystectomy, Colonoscopy, Hernia, Inguinal, Hernia Repair/Other Musculoskeletal Surgical History: Reports: Knee Replacement, Other (See Below) - SUBSTANCE USE Tobacco Use Status *Q: Current Every Day Tobacco User - HOME MEDS Home Medications: Home Meds Aspirin [Tim Chewable Aspirin] 81 mg PO DAILY 12/12/13 [History] Lisinopril 20 mg PO DAILY 12/12/13 [History] carvediloL [Coreg] 25 mg PO BID 12/12/13 [History] Allopurinol [Zyloprim] 300 mg PO BID 07/20/15 [History] metFORMIN [Glucophage XR] 500 mg PO BID 07/08/16 [History] Omeprazole 20 mg PO DAILY #30 cap.cr 07/26/16 [Rx] Fenofibrate 160 mg PO DAILY 06/21/19 [History] Furosemide [Lasix] 40 mg PO DAILY 06/21/19 [History] amLODIPine Besylate [Norvasc] 5 mg PO DAILY 06/21/19 [History] - CURRENT (IN HOUSE) MEDS Current Meds: Current Medications Lactated Ringer's (Ringers, Lactated) 1,000 mls @ 125 mls/hr IV ASDIRECTED GERALD Stop: 07/20/21 23:00 Lidocaine/Sodium Bicarbonate (Lidocaine 1%/Sod Bicarbonate In Ns 8.4% 1 Ml Syringe) 0.25 ml IDERM ONETIME PRN PRN Reason: Prior to IV Start Stop: 07/20/21 23:00 Sodium Chloride (Sodium Chloride 0.9% 10 Ml Syringe) 10 ml FLUSH ASDIRECTED PRN PRN Reason: Keep Vein Open Stop: 07/20/21 23:00
[2021-07-20] MEDS ORDERED: fentaNYL 100 MCG/2 ML SDV ONE (07:33)
[2021-07-20] MEDS ORDERED: Propofol 200 MG/20 ML SDV ONE ×5 (07:33→09:10)
[2021-07-20] MEDS ORDERED: Midazolam 1 MG/ML 2 ML SDV ONE (07:33)
[2021-07-20] MEDS ORDERED: Lidocaine 1% 4 ML ONE (07:33)
--- NOTE | 2021-07-20 09:31 | PCM48HPAN ---
Post Anesthesia Note - EVALUATION WITHIN 48HRS OF ANESTHETIC Vital Signs in Normal Range: Yes Patient Participated in Evaluation: Yes Respiratory Function Stable: Yes Airway Patent: Yes Cardiovascular Function Stable: Yes Hydration Status Stable: Yes Pain Control Satisfactory: Yes Nausea and Vomiting Control Satisfactory: Yes Mental Status Recovered: Yes Vital Signs: Last Vital Signs Temp 36.7 C 07/20/21 07:10 Pulse 73 07/20/21 07:10 Resp 16 07/20/21 07:10 BP 137/66 07/20/21 07:10 Pulse Ox 93 L 07/20/21 07:10
[2021-07-20 09:37] VITALS: PULSE 64
[2021-07-20 10:00] VITALS: BP 118/70
--- NOTE | 2021-07-20 11:41 | PROC ---
DATE OF OPERATION: 07/20/2021 SURGEON: Trace Rubin MD PREOPERATIVE DIAGNOSIS: Anemia. POSTOPERATIVE DIAGNOSES: 1. Nodular duodenal bulb mucosa. 2. Multiple colon polyps. 3. Angiodysplasia in the transverse colon. OPERATION PERFORMED: 1. Esophagogastroduodenoscopy. 2. Colonoscopy. ESTIMATED BLOOD LOSS: Minimal. ANESTHESIA: Monitored anesthesia care. COMPLICATIONS: None. SUMMARY OF THE FINDINGS: The patient had at least 15 1 to 6 mm polyps that were removed with a combination of cold forceps and hot snare. The patient also had a small about 0.7 cm angiodysplasia in the transverse colon. This was cauterized slightly with hot forceps. INDICATIONS AND CONSENT: Mr. Mederos is 56. He has been having some lower abdominal cramps as well as low- grade anemia for about a year and half to 2 years. The patient was seen and evaluated and has been placed on iron supplements and he was sent to me for evaluation. I discussed with the patient that the concern is GI blood loss. I recommended that he get fecal occult blood test to confirm GI blood loss, but the patient was not tolerating this procedure. Therefore, he opted to proceed directly with EGD and colonoscopy to evaluate for the source. The patient had prior colonoscopy 2 years ago that was significant for polyps. We discussed risks, benefits, and alternatives and informed consent was obtained. DETAILS OF PROCEDURE: The patient was taken to the procedure room and placed in the left lateral decubitus position. Monitored anesthesia care was induced. Then, we began with an EGD. After placing a bite block and performing a time-out, EGD was placed into the mouth and taken down while examining the esophagus which was totally normal. Z-line was around 42 cm from incisors. We entered the stomach, which appeared normal. We entered the duodenal bulb. Duodenal bulb had some nodular areas, but the first and second portion of duodenum were normal. We biopsied duodenal bulb for evaluation as well as the antrum to rule out infection. On retroflexion, there was no hiatal hernia. We suctioned the air out and withdrew the scope. On digital rectal exam, the patient had grade 2 internal hemorrhoids, and then digital rectal exam was otherwise normal. The scope was inserted and taken all the way to the cecum. Cecum was visualized and palpated. It was challenging exam due to significant looping, requiring change in position with the patient to supine as well as abdominal pressure, but eventually able to get to the cecum, palpated and visualized the cecum entirely, which was normal. Photographs were taken here. Right at the cecum, there were 2 polyps that were removed with cold forceps. These cecal polyps where one was 3 mm and the other one was about 6 mm. Both were semi-pedunculated. In the ascending colon, there were 4 polyps that were removed with cold forceps. These ranged from 2 to 6 mm. In the hepatic flexure, there were 4 polyps ranging from 2 to 5 mm. These were semi-pedunculated, removed with cold forceps. EBL was minimal. In the transverse colon, there was an area about 0.7 cm that had angiodysplasia and I was concerned that this could be another source of his low-grade bleed. Therefore, hot forceps were used to grab this area, pull it away from the colon wall and we performed cautery. Cautery was performed carefully avoiding charring the mucosa and this was left intact. There was no bleeding. We proceeded, in the descending colon, there was 1 polyp that was removed with cold forceps. In the sigmoid, there were 3 polyps, 2 were removed with cold forceps and 1 with hot snare, and in the rectum, there was 1 polyp that was removed with cold forceps. A total of about 15 polyps were found and removed. Now, on the retroflexion, there were no abnormalities. At this point, the procedure was concluded. The patient was allowed to recover and will be allowed to return home. Due to the number of polyps, I recommend this patient undergo another colonoscopy in 1 year to recheck his colon. The patient will follow up with nurse practitioner in clinic for pathology discussion. LEATHA /[id number]
== END 2021-07-20 10:23 | disposition home or self-care (01) ==
LOC: JD.SDS 07:03
PROVIDERS: ATTEND Surgery
DX: D12.2 Benign neoplasm of ascending colon (principal); D12.0 Benign neoplasm of cecum; D12.3 Benign neoplasm of transverse colon; D12.5 Benign neoplasm of sigmoid colon; D64.9 Anemia, unspecified; K31.89 Other diseases of stomach and duodenum; K55.20 Angiodysplasia of colon without hemorrhage; K64.1 Second degree hemorrhoids; J44.9 Chronic obstructive pulmonary disease, unspecified; E11.9 Type 2 diabetes mellitus without complications; M10.9 Gout, unspecified; I10 Essential (primary) hypertension; E78.2 Mixed hyperlipidemia; G47.33 Obstructive sleep apnea (adult) (pediatric); F17.210 Nicotine dependence, cigarettes, uncomplicated; I42.9 Cardiomyopathy, unspecified; Z98.890 Other specified postprocedural states; Z79.899 Other long term (current) drug therapy; Z79.84 Long term (current) use of oral hypoglycemic drugs; Z88.1 Allergy status to other antibiotic agents; Z88.8 Allergy status to other drugs, medicaments and biological substances; Z79.82 Long term (current) use of aspirin
CPT/HCPCS: 00813; J2250; J2704; J3010; J7120

== ENCOUNTER 2022-08-04 07:46 | Day surgery (SDC) | payer BC, OTHER ==
[~2022-08-04 07:46] MED LIST changes: +Sodium Chloride 0.9% 10 ML Syringe FLUSH SCH
[2022-08-04] MEDS ORDERED: fentaNYL 100 MCG/2 ML SDV ONE (08:09)
[2022-08-04] MEDS ORDERED: Propofol 200 MG/20 ML SDV ONE ×2 (08:09→10:03)
[2022-08-04] MEDS ORDERED: Midazolam 1 MG/ML 2 ML SDV ONE (08:09)
[2022-08-04] MEDS ORDERED: Lidocaine 1% 4 ML ONE (08:09)
[2022-08-04] MEDS ORDERED: Albuterol 0.083% 2.5 MG/3 ML Neb Soln NEB ONE (08:21)
[2022-08-04 10:58] VITALS: BP 132/77; PULSE 88
== END 2022-08-04 10:52 | disposition home or self-care (01) ==
LOC: JD.SDS 07:46
PROVIDERS: ATTEND Surgery
DX: Z12.11 Encounter for screening for malignant neoplasm of colon (principal); D12.3 Benign neoplasm of transverse colon; I11.0 Hypertensive heart disease with heart failure; I50.9 Heart failure, unspecified; D72.820 Lymphocytosis (symptomatic); E78.2 Mixed hyperlipidemia; I42.0 Dilated cardiomyopathy; G47.33 Obstructive sleep apnea (adult) (pediatric); E11.65 Type 2 diabetes mellitus with hyperglycemia; J44.9 Chronic obstructive pulmonary disease, unspecified; F17.210 Nicotine dependence, cigarettes, uncomplicated; Z86.010 Personal history of colon polyps; Z98.890 Other specified postprocedural states; Z79.899 Other long term (current) drug therapy; Z79.82 Long term (current) use of aspirin; Z79.84 Long term (current) use of oral hypoglycemic drugs; Z88.0 Allergy status to penicillin; Z88.1 Allergy status to other antibiotic agents; Z88.6 Allergy status to analgesic agent
CPT/HCPCS: 00812; J2250; J2704; J3010; J7120

== ENCOUNTER 2023-01-30 20:01 | Emergency (ER) | payer OTHER ==
[2023-01-30] MEDS ORDERED: Acetaminophen/HYDROcodone 325-5 MG Tab PO ONE (20:50)
[2023-01-30 22:13] VITALS: BP 135/69; PULSE 82
== END 2023-01-30 22:10 | disposition home or self-care (01) ==
LOC: JD.ED 20:01
DX: M25.561 Pain in right knee (principal); M16.0 Bilateral primary osteoarthritis of hip; F17.210 Nicotine dependence, cigarettes, uncomplicated; I11.0 Hypertensive heart disease with heart failure; I50.9 Heart failure, unspecified; E78.00 Pure hypercholesterolemia, unspecified; J44.9 Chronic obstructive pulmonary disease, unspecified; E11.9 Type 2 diabetes mellitus without complications; E66.9 Obesity, unspecified; Z68.31 Body mass index [BMI] 31.0-31.9, adult; Z95.0 Presence of cardiac pacemaker; Z79.82 Long term (current) use of aspirin; Z79.84 Long term (current) use of oral hypoglycemic drugs; Z79.899 Other long term (current) drug therapy; Z88.1 Allergy status to other antibiotic agents; Z88.8 Allergy status to other drugs, medicaments and biological substances
CPT/HCPCS: 73502; 73562; 99283; A9270

== ENCOUNTER 2024-05-30 07:11 | Day surgery (SDC) | payer OTHER ==
[~2024-05-30 07:11] MED LIST changes: -Lactated Ringers 1,000 ML IV SCH; -Lidocaine 1%/Sod Bicarbonate in NS 8.4% 1 ML Syringe IDERM PRN
[2024-05-30] MEDS ORDERED: Propofol 200 MG/20 ML SDV ONE ×6 (07:32→09:18)
[2024-05-30] MEDS: Lactated Ringers 1,000 ML IV SCH (07:40)
[2024-05-30 11:07] VITALS: BP 113/72; PULSE 70
== END 2024-05-30 10:10 | disposition home or self-care (01) ==
LOC: JD.SDS 07:11
PROVIDERS: ATTEND Surgery
DX: D12.4 Benign neoplasm of descending colon (principal); D12.5 Benign neoplasm of sigmoid colon; K52.9 Noninfective gastroenteritis and colitis, unspecified; K20.90 Esophagitis, unspecified without bleeding; K64.8 Other hemorrhoids; E11.22 Type 2 diabetes mellitus with diabetic chronic kidney disease; I13.0 Hypertensive heart and chronic kidney disease with heart failure and stage 1 through stage 4 chronic kidney disease, or unspecified chronic kidney disease; I50.9 Heart failure, unspecified; N18.2 Chronic kidney disease, stage 2 (mild); E78.2 Mixed hyperlipidemia; F17.210 Nicotine dependence, cigarettes, uncomplicated
CPT/HCPCS: 43239; 45380; 45384; 45385; J2704; J7120; 00813

== ENCOUNTER 2024-06-06 06:39 | Emergency (ER) | payer OTHER ==
[2024-06-06] MEDS ORDERED: Sodium Chloride 0.9% 10 ML Syringe FLUSH PRN (07:04)
[2024-06-06 08:46] LABS: BASOPHILS ABSOLUTE AUTO 0.1 K/mm3 (0.0-0.2); BASOPHILS PERCENT AUTO 0.7 % (0.0-1.0); EOSINOPHILS ABSOLUTE AUTO 0.5 K/mm3 (0.0-0.4); HEMATOCRIT 37.3 % (42.0-52.0); HEMOGLOBIN 12.3 gm/dl (14.0-18.0); IMMATURE GRAN ABSOLUTE AUTO 0.12 K/mm3 (0.00-0.05); LYMPHOCYTES ABSOLUTE AUTO 1.4 K/mm3 (1.0-4.8); LYMPHOCYTES PERCENT AUTO 11.6 % (24.0-44.0); MEAN PLATELET VOLUME 10.5 fl (9.4-12.4); MONOCYTES ABSOLUTE AUTO 0.9 K/mm3 (0.0-0.8); NEUTROPHILS ABSOLUTE AUTO 9.4 K/mm3 (1.8-7.7); NEUTROPHILS PERCENT AUTO 75.7 % (41.0-71.0); PLATELET COUNT,PLT 247 K/mm3 (150-400); WHITE BLOOD CELL COUNT,WBC 12.37 K/mm3 (3.9-11.3)
[2024-06-06 09:03] LABS: INR 0.94
[2024-06-06 09:04] LABS: PTT,PARTIAL THROMBOPLSTIN TIME 34.5 SECONDS (21.7-31.4)
[2024-06-06 09:12] LABS: ALBUMIN 3.7 g/dl (3.4-5.0); ANION GAP 13.8 (5-15); BILIRUBIN TOTAL 0.3 mg/dL (0.2-1.0); CALCIUM 9.1 mg/dL (8.5-10.1); EST CRCL DRUG DOSING (CG) 85.14 mL/min; POTASSIUM,K 4.8 mEq/L (3.5-5.1); PROTEIN TOTAL,TP 7.6 g/dl (6.4-8.2)
[2024-06-06] MEDS: Iopamidol 755 Mg/ML 100 ML Bottle IVPUSH ONE (10:05)
[2024-06-06] MEDS: Sodium Chloride 0.9% 10 ML Syringe FLUSH PRN (10:05)
[2024-06-06 11:06] VITALS: BP 149/87; PULSE 68
== END 2024-06-06 10:27 | disposition home or self-care (01) ==
LOC: JD.ED 06:39
DX: K62.5 Hemorrhage of anus and rectum (principal); E78.00 Pure hypercholesterolemia, unspecified; I10 Essential (primary) hypertension; Z95.0 Presence of cardiac pacemaker; J44.9 Chronic obstructive pulmonary disease, unspecified; E11.9 Type 2 diabetes mellitus without complications; E66.9 Obesity, unspecified; Z68.35 Body mass index [BMI] 35.0-35.9, adult; Z90.49 Acquired absence of other specified parts of digestive tract; Z79.82 Long term (current) use of aspirin; Z79.84 Long term (current) use of oral hypoglycemic drugs; Z79.899 Other long term (current) drug therapy; Z88.1 Allergy status to other antibiotic agents; Z88.6 Allergy status to analgesic agent
CPT/HCPCS: 36415; 74177; 80053; 83690; 85025; 85610; 85730; 99284; J3490; Q9967; 99283